=== PATIENT | male | born 1945 | race Caucasian/White ===

== ENCOUNTER 2017-04-09 23:01 | Observation (INO) ==
[2017-04-09] MEDS ORDERED: 0.9 % Sodium Chloride 1,000 ML IVC ONE (23:08)
--- NOTE | 2017-04-09 23:18 | Emergency Department Note ---
Disposition Clinical Impression: Generalized weakness, Unsteady gait, Thrombocytopenia Fall Qualifiers: Encounter type: initial encounter Qualified Code(s): W19.XXXA - Unspecified fall, initial encounter Head injury Qualifiers: Encounter type: initial encounter Qualified Code(s): S09.90XA - Unspecified injury of head, initial encounter Leukocytosis Qualifiers: Leukocytosis type: unspecified Qualified Code(s): D72.829 - Elevated white blood cell count, unspecified Disposition: Admitted As Inpatient Condition: Fair Forms: Work/School Release, ED Satisfaction Letter General Adult HPI - General Chief complaint: ED General Medical Stated complaint: frequent falls/unsteady gait Time Seen by Provider: 04/09/17 23:07 Source: EMS, other (nurse at assisted living facility) Mode of arrival: EMS Limitations: altered mental status (disoriented) Nursing Notes Reviewed: Yes Vital Signs Reviewed: Yes - History of Present Illness Pt Subjective Complaint: "I'm just very tired" Onset (ago): day(s) Location: face Radiation: non-radiation Pain Scale: 0 Quality: other ("no pain") Improves with: nothing Worsens with: other ("a little sore if touching it") Associated symptoms: Reports: weakness ("weak and tired"). Denies: cough, fever /chills, headaches, loss of appetite, malaise, nausea/vomiting, shortness of breath, syncope Treatments Prior to Arrival: none - Related Data Home Medications Medication Instructions Recorded Confirmed Albuterol Sulfate [Proair Hfa] 2 puff IH Q4H PRN 12/06/16 12/06/16 Benztropine Mesylate 0.5 mg PO BID 12/06/16 12/06/16 Budesonide/Formoterol 160/4.5 2 puff IH BIDR 12/06/16 12/06/16 [Symbicort 160/4.5] Citalopram Hydrobromide 20 mg PO DAILY 12/06/16 12/06/16 [Citalopram HBr] Divalproex Sodium [Depakote] 2 tab PO TID 12/06/16 12/06/16 Finasteride [Proscar] 5 mg PO DAILY 12/06/16 12/06/16 Haloperidol 10 mg PO BID 12/06/16 12/06/16 Loratadine [Allergy Relief] 10 mg PO DAILY 12/06/16 12/06/16 Metoprolol Succinate 25 mg PO DAILY 12/06/16 12/06/16 Montelukast [Singulair] 10 mg PO QPM 12/06/16 12/06/16 Oxybutynin Chloride [Ditropan Xl] 5 mg PO DAILY 12/06/16 12/06/16 Oxygen 1 each .ROUTE AD 12/06/16 12/06/16 Pravastatin Sodium [Pravachol] 80 mg PO DAILY 12/06/16 12/06/16 Prazosin HCl [Minipress] 1 mg PO HS 12/06/16 12/06/16 risperiDONE [Risperdal] 2 tab PO HS 12/06/16 12/06/16 risperiDONE [Risperidone] 1 mg PO QAM 12/06/16 12/06/16 Allergies Allergy/AdvReac Type Severity Reaction Status Date / Time No Known Allergies Allergy Verified 11/16/15 10:49 All systems ED: reviewed and negative except as stated. Review of Systems: As Per HPI Constitutional: Reports: weakness. Denies: fever, chills Eyes: Denies: eye pain, eye discharge, vision change ENT ED: Denies: ear pain, throat pain, dysphagia Cardiovascular: Denies: chest pain, palpitations, dyspnea on exertion Respiratory: Denies: cough, dyspnea, wheezes, stridor, sputum production Gastrointestinal: Denies: abdominal pain, nausea, vomiting, diarrhea Genitourinary: Denies: urgency, dysuria, frequency Musculoskeletal: Denies: back pain, neck pain, joint swelling Neurological: Denies: headache, numbness, paresthesias Endocrine: Reports: fatigue Hematological/Lymphatic: Denies: easy bleeding, easy bruising Past Medical History - Past Medical History Attestation: Yes The following information was validated with the patient. Source: patient Medical history: Reports: COPD, other (light chain disease) Psychiatric history: Reports: prior suicide attempt, schizophrenia - Social History Smoking Status: Current every day smoker Smokeless Tobacco Status: No Alcohol use: Reports: none Drug use: Reports: none Physical Exam - General Limitations: no limitations General appearance: alert, in no apparent distress - Head Head exam: normocephalic, normal inspection, other (contusion to right orbital area) - Expanded Head Exam Head exam physicial: Present: contusion. Absent: raccoon eyes, Hernandez's sign, CSF rhinorrhea, CSF otorrhea 1 - contusion - Eye Eye exam: Present: PERRL, periorbital swelling, periorbital tenderness. Absent : scleral icterus, conjunctival injection - ENT ENT exam: mucous membranes dry - Neck Neck exam: Present: normal inspection, full ROM, trachea midline. Absent: tenderness - Expanded Neck Exam Neck exam focused ED: Absent: midline tenderness, paraspinal tenderness, anterior neck swelling - Chest Chest inspection: Present: normal inspection - Respiratory Respiratory exam: Present: normal lung sounds bilaterally. Absent: respiratory distress, wheezes, stridor, accessory muscle use - Cardiovascular Cardiovascular exam: Present: regular rate, normal rhythm - Abdominal Exam Abdominal exam: Present: soft, Non-Tender. Absent: distention, guarding, rebound, rigidity, mass - Extremities Exam Extremities exam: Present: normal inspection, normal capillary refill. Absent: tenderness, joint swelling, calf tenderness - Expanded Lower Extremity Exam Neurovascular/Tendon exam: Present: normal capillary refill. Absent: pulse deficit Gait: not tested/not observed - Neurological Exam Neurological exam: Present: alert - Expanded Neurological Exam Patient oriented to: Present: person, place Speech: Present: fluid speech Cranial nerves: EOM function (II, III, IV, ): Normal, facial sensation (V): Normal, facial palsy (VII): Normal, gag reflex (IX): Normal, spinal accessory function (XI): Normal, tongue deviation (XII): Normal Cerebellar function: finger to nose: Normal Motor strength - LUE: 3/5 Motor strength - RUE: 3/5 Motor strength - LLE: 3/5 Motor strength - RLE: 3/5 Sensory exam upper extremity: light touch: Normal Sensory exam lower extremity: light touch: Normal Coma Scale Eye Opening: Spontaneous Coma Scale Motor Response: Obeys Commands Coma Scale Verbal Response: Confused Coma Scale Total: 14 - Psychiatric Psychiatric exam: Present: normal affect, normal mood - Skin Skin exam: Present: warm, dry, intact, normal color Course Course Narrative: Patient was sent in from the assisted living facility for evaluation after having a fall. EMS reports that the nurse informed them that the patient has been unsteady and has almost fallen several times over the past two days, then today they found him in the bathroom on the floor. He states that he was just very tired and he fell. He denies loss of consciousness. He denies any pain. He complains of feeling tired. EKG shows a normal sinus rhythm. Chest X-ray is also normal. CT of the head, C-spine, and orbits are read as no acute abnormality. Urinalysis is also normal. Patient is somewhat disoriented and complains of feeling generalized weakness and fatigue. He has a leukocytosis and renal insufficiency as well as new thrombocytopenia. He will require admission for further evaluation and management. Case has been discussed with Dr. Mckeon. He has seen the patient and agrees with the assessment and plan. Vital Signs Temperature 98.2 F 04/09/17 23:26 Pulse Rate 92 04/09/17 23:26 Respiratory Rate 18 04/09/17 23:26 Blood Pressure 117/86 04/09/17 23:26 O2 Sat by Pulse Oximetry 92 04/09/17 23:26 Temperature 98.2 F 04/09/17 23:26 Pulse Rate 92 04/09/17 23:26 Respiratory Rate 18 04/09/17 23:26 Blood Pressure 117/86 04/09/17 23:26 O2 Sat by Pulse Oximetry 94 04/09/17 23:30 Oxygen Delivery Oxygen Delivery Room Air Medical Decision Making - Medical Records Medical records reviewed: Yes I reviewed the patient's medical records. - Lab Data Lab results reviewed: Yes I reviewed the patient's lab results. Lab results narrative: Laboratory Last Values WBC 12.2 K/mcL (4.3-11.1) H 04/10/17 00:11 RBC 4.54 M/mcL (4.19-5.50) 04/10/17 00:11 Hgb 14.1 g/dL (12.9-16.9) 04/10/17 00:11 Hct 42.3 % (37.5-50.1) 04/10/17 00:11 MCV 93.2 fL (83.0-100.0) 04/10/17 00:11 MCH 31.1 pg (28.0-33.3) 04/10/17 00:11 MCHC 33.3 g/dL (31.6-35.5) 04/10/17 00:11 RDW 12.6 % (11.5-14.5) 04/10/17 00:11 Plt Count 127 K/mcL (140-400) L 04/10/17 00:11 MPV 10.2 fL (9.4-12.4) 04/10/17 00:11 Immature Gran % 0.5 % (0-4) 04/10/17 00:11 Seg Neutrophils % 75.4 % 04/10/17 00:11 Lymphocytes % 9.6 % 04/10/17 00:11 Monocytes % 13.8 % 04/10/17 00:11 Eosinophils % 0.5 % 04/10/17 00:11 Basophils % 0.2 % 04/10/17 00:11 Neutrophils # 9.2 K/mcL (1.6-8.9) H 04/10/17 00:11 Lymphocytes # 1.2 K/mcL (0.6-4.6) 04/10/17 00:11 Monocytes # 1.7 K/mcL (0.0-1.3) H 04/10/17 00:11 Eosinophils # 0.1 K/mcL (0.0-0.6) 04/10/17 00:11 Basophils # 0.0 K/mcL (0.0-0.2) 04/10/17 00:11 PT 12.7 Seconds (9.4-12.1) H 04/10/17 00:11 INR 1.2 04/10/17 00:11 Sodium 138 mEq/L (136-145) 04/10/17 00:11 Potassium 4.2 mEq/L (3.5-4.5) 04/10/17 00:11 Chloride 108 mEq/L (98-109) 04/10/17 00:11 Carbon Dioxide 21 mEq/L (19-29) 04/10/17 00:11 BUN 27 mg/dL (8-26) H 04/10/17 00:11 Creatinine 1.53 mg/dL (0.72-1.25) H 04/10/17 00:11 Est GFR ( Amer) 55 (> 60) L 04/10/17 00:11 Est GFR (Non-Af Amer) 45 (> 60) L 04/10/17 00:11 BUN/Creatinine Ratio 18 (6-26) 04/10/17 00:11 Glucose 122 mg/dL (70-99) H 04/10/17 00:11 Calculated Osmolality 292 (280-300) 04/10/17 00:11 Lactic Acid 0.9 mmol/L (0.5-2.2) 04/10/17 00:11 Calcium 9.8 mg/dL (8.6-10.8) 04/10/17 00:11 Magnesium 1.7 mg/dL (1.6-2.6) 04/10/17 00:11 Total Bilirubin 0.5 mg/dL (0.2-1.2) 04/10/17 00:11 AST 31 Units/L (5-34) 04/10/17 00:11 ALT 10 Units/L (0-55) 04/10/17 00:11 Alkaline Phosphatase 68 Units/L (38-126) 04/10/17 00:11 Troponin I 0.01 ng/mL (0-0.03) 04/10/17 00:11 Serum Total Protein 6.6 g/dL (6.0-8.3) 04/10/17 00:11 Albumin 2.7 g/dL (3.5-5.0) L 04/10/17 00:11 Globulin 3.9 g/dL (2.4-3.5) H 04/10/17 00:11 Albumin/Globulin Ratio 0.7 (1.1-2.2) L 04/10/17 00:11 Urine Color Yellow (Yellow) 04/10/17 01:00 Urine Clarity Clear (Clear) 04/10/17 01:00 Urine pH 6.5 pH Units (5.0-8.0) 04/10/17 01:00 Ur Specific [place] 1.008 (1.010-1.025) L 04/10/17 01:00 Urine Protein Negative mg/dL (Neg-Trace) 04/10/17 01:00 Urine Glucose (UA) Normal mg/dL (Normal) 04/10/17 01:00 Urine Ketones Negative mg/dL (Negative) 04/10/17 01:00 Urine Blood Small (Negative) H 04/10/17 01:00 Urine Nitrite Negative (Negative) 04/10/17 01:00 Urine Bilirubin Negative (Negative) 04/10/17 01:00 Urine Urobilinogen Normal mg/dL (Normal) 04/10/17 01:00 Ur Leukocyte Esterase Negative (Negative) 04/10/17 01:00 Urine Microscopic RBC 0-3 per hpf (0-3) 04/10/17 01:00 Urine Microscopic WBC 0-3 per hpf (0-3) 04/10/17 01:00 Ur Squamous Epith Cells None Seen per lpf (None-Few) 04/10/17 01:00 Urine Bacteria None Seen per hpf (None-Few) 04/10/17 01:00 Hyaline Casts None Seen per lpf (None-Few) 04/10/17 01:00 Ur Culture Indicated? NO (NO) 04/10/17 01:00 Valproic Acid 76.02 mcg/mL (50-100) 04/10/17 00:11 Result diagrams: 04/10/17 00:11 04/10/17 00:11 Lab Results 04/10/17 04/10/17 04/10/17 Range/Units 00:11 00:11 00:11 WBC 12.2 H (4.3-11.1) K/mcL RBC 4.54 (4.19-5.50) M/mcL Hgb 14.1 (12.9-16.9) g/dL Hct 42.3 (37.5-50.1) % MCV 93.2 (83.0-100.0) fL MCH 31.1 (28.0-33.3) pg MCHC 33.3 (31.6-35.5) g/dL RDW 12.6 (11.5-14.5) % Plt Count 127 L (140-400) K/mcL MPV 10.2 (9.4-12.4) fL Immature Gran % 0.5 (0-4) % Seg Neutrophils % 75.4 % Lymphocytes % 9.6 % Monocytes % 13.8 % Eosinophils % 0.5 % Basophils % 0.2 % Neutrophils # 9.2 H (1.6-8.9) K/mcL Lymphocytes # 1.2 (0.6-4.6) K/mcL Monocytes # 1.7 H (0.0-1.3) K/mcL Eosinophils # 0.1 (0.0-0.6) K/mcL Basophils # 0.0 (0.0-0.2) K/mcL PT 12.7 H (9.4-12.1) Seconds INR 1.2 Sodium 138 (136-145) mEq/L Potassium 4.2 (3.5-4.5) mEq/L Chloride 108 (98-109) mEq/L Carbon Dioxide 21 (19-29) mEq/L BUN 27 H (8-26) mg/dL Creatinine 1.53 H (0.72-1.25) mg/dL Est GFR ( Amer) 55 L (> 60) Est GFR (Non-Af Amer) 45 L (> 60) BUN/Creatinine Ratio 18 (6-26) Glucose 122 H (70-99) mg/dL Calculated Osmolality 292 (280-300) Lactic Acid (0.5-2.2) mmol/L Calcium 9.8 (8.6-10.8) mg/dL Magnesium 1.7 (1.6-2.6) mg/dL Total Bilirubin 0.5 (0.2-1.2) mg/dL AST 31 (5-34) Units/L ALT 10 (0-55) Units/L Alkaline Phosphatase 68 (38-126) Units/L Troponin I (0-0.03) ng/mL Serum Total Protein 6.6 (6.0-8.3) g/dL Albumin 2.7 L (3.5-5.0) g/dL Globulin 3.9 H (2.4-3.5) g/dL Albumin/Globulin Ratio 0.7 L (1.1-2.2) Valproic Acid (50-100) mcg/mL 04/10/17 04/10/17 04/10/17 Range/Units 00:11 00:11 00:11 WBC (4.3-11.1) K/mcL RBC (4.19-5.50) M/mcL Hgb (12.9-16.9) g/dL Hct (37.5-50.1) % MCV (83.0-100.0) fL MCH (28.0-33.3) pg MCHC (31.6-35.5) g/dL RDW (11.5-14.5) % Plt Count (140-400) K/mcL MPV (9.4-12.4) fL Immature Gran % (0-4) % Seg Neutrophils % % Lymphocytes % % Monocytes % % Eosinophils % % Basophils % % Neutrophils # (1.6-8.9) K/mcL Lymphocytes # (0.6-4.6) K/mcL Monocytes # (0.0-1.3) K/mcL Eosinophils # (0.0-0.6) K/mcL Basophils # (0.0-0.2) K/mcL PT (9.4-12.1) Seconds INR Sodium (136-145) mEq/L Potassium (3.5-4.5) mEq/L Chloride (98-109) mEq/L Carbon Dioxide (19-29) mEq/L BUN (8-26) mg/dL Creatinine (0.72-1.25) mg/dL Est GFR ( Amer) (> 60) Est GFR (Non-Af Amer) (> 60) BUN/Creatinine Ratio (6-26) Glucose (70-99) mg/dL Calculated Osmolality (280-300) Lactic Acid 0.9 (0.5-2.2) mmol/L Calcium (8.6-10.8) mg/dL Magnesium (1.6-2.6) mg/dL Total Bilirubin (0.2-1.2) mg/dL AST (5-34) Units/L ALT (0-55) Units/L Alkaline Phosphatase (38-126) Units/L Troponin I 0.01 (0-0.03) ng/mL Serum Total Protein (6.0-8.3) g/dL Albumin (3.5-5.0) g/dL Globulin (2.4-3.5) g/dL Albumin/Globulin Ratio (1.1-2.2) Valproic Acid 76.02 (50-100) mcg/mL - Radiology Data Radiology results reviewed: Yes I reviewed the patient's radiology results. Cervical Spine CT 04/09/17 23:08 IMPRESSION: 1. No acute abnormality of the cervical spine. 2. Ojuv-rl-rublhjib multilevel degenerative changes. D/ / Gómez Mcgowan MD / Gómez Mcgowan MD Interpreting Provider: Gómez Mcgowan MD Chest X-Ray 04/09/17 23:08 IMPRESSION: Bibasilar atelectasis/ scarring. Right mid lung zone nodule is seen on recent chest CT. D/ / Adalid Adan MD / Adalid Adan MD Interpreting Provider: Adalid Adan MD Orbit CT 04/09/17 23:08 IMPRESSION: CT HEAD: No acute intracranial process. Stable moderate to severe global parenchymal brain volume loss and mild chronic small vessel ischemic disease. CT ORBITS: Negative. D/ / Adalid Adan MD / Adalid Adan MD Interpreting Provider: Adalid Adan MD Head CT 04/09/17 23:09 IMPRESSION: CT HEAD: No acute intracranial process. Stable moderate to severe global parenchymal brain volume loss and mild chronic small vessel ischemic disease. CT ORBITS: Negative. D/ / Adalid Adan MD / Adalid Adan MD Interpreting Provider: Adalid Adan MD - EKG Data EKG #1 EKG attestation: Yes I reviewed and interpreted this EKG. EKG shows normal: sinus rhythm Rate: normal Rhythm: NSR [place]/QRS: normal When compared to previous EKG there are: no significant changes Interpretation: no acute changes, normal EKG
--- NOTE | 2017-04-10 00:08 | Emergency Department Note ---
START Narrative - START START: For this encounter, I have reviewed the SUBSYSTEMS ENGINEER or PA documentation, treatment plan, and medical decision making; and I have had face to face time with this patient. Briefly, this is a 71-year-old male presents emergency room for generalized weakness and frequent falls. Patient stays at a assisted living. States he fell this evening was unable to get up off the floor. He states he has not felt well for the past couple days and feels more weak. He does use a walker normally. He was using a walker today. Denies any new medications. He thinks he may have had a fever earlier in the day. He denies any chest pain or shortness of breath this time.
[2017-04-10 00:19] LABS: Basophils % 0.2 %; Eosinophils # 0.1 K/mcL (0.0-0.6); Eosinophils % 0.5 %; Hematocrit 42.3 % (37.5-50.1); Hemoglobin 14.1 g/dL (12.9-16.9); Immature Granulocytes % 0.5 % (0-4); Lymphocytes # 1.2 K/mcL (0.6-4.6); Lymphocytes % 9.6 %; Mean Corpuscular HGB Conc 33.3 g/dL (31.6-35.5); Mean Corpuscular Hemoglobin 31.1 pg (28.0-33.3); Mean Corpuscular Volume 93.2 fL (83.0-100.0); Mean Platelet Volume 10.2 fL (9.4-12.4); Monocytes # 1.7 K/mcL (0.0-1.3); Monocytes % 13.8 %; Neutrophils # 9.2 K/mcL (1.6-8.9); Platelet Count 127 K/mcL (140-400); Red Blood Count 4.54 M/mcL (4.19-5.50); Red Cell Distribution Width 12.6 % (11.5-14.5); Segmented Neutrophils % 75.4 %
[2017-04-10 00:24] LABS: INR 1.2; Prothrombin Time 12.7 Seconds (9.4-12.1)
[2017-04-10 00:36] LABS: Albumin 2.7 g/dL (3.5-5.0); Albumin/Globulin Ratio 0.7 (1.1-2.2); Bilirubin,Total 0.5 mg/dL (0.2-1.2); Calcium 9.8 mg/dL (8.6-10.8); Globulin 3.9 g/dL (2.4-3.5); Magnesium 1.7 mg/dL (1.6-2.6); Potassium 4.2 mEq/L (3.5-4.5); Total Protein 6.6 g/dL (6.0-8.3)
[2017-04-10 01:09] LABS: Bilirubin,Urine Negative (Negative); Blood,Urine Small (Negative); Clarity,Urine Clear (Clear); Color,Urine Yellow (Yellow); Glucose,Urine (UA) Normal (Normal); Ketones,Urine Negative (Negative); Leukocyte Esterase,Urine Negative (Negative); Nitrite,Urine Negative (Negative); PH,Urine 6.5 pH Units (5.0-8.0); Protein,Urine Negative (Neg-Trace); Specific Gravity,Urine 1.008 (1.010-1.025); Urobilinogen,Urine Normal (Normal)
[2017-04-10 01:11] LABS: Bacteria,Urine None Seen per hpf (None-Few); Hyaline Casts,Urine None Seen per lpf (None-Few); RBC,Urine 0-3 per hpf (0-3); Squamous Epithelial Cell,Urine None Seen per lpf (None-Few); WBC,Urine 0-3 per hpf (0-3)
--- NOTE | 2017-04-10 03:02 | Internal Med History&Physical ---
Date of Encounter: 04/10/17 Time of Encounter: 02:54 Assessment and Plan (1) Generalized weakness Current visit: Yes Status: Acute CXR, UA all wnl. Check TSH, FT4, Further eval pending (2) Unsteady gait Current visit: Yes Status: Acute PT eval, possible SNF, orthostats (3) Fall Current visit: Yes Status: Acute PT eval possible SNF placement, orthostats Qualifiers: Encounter type: initial encounter Qualified Code(s): W19.XXXA - Unspecified fall, initial encounter (4) HTN (hypertension), benign Current visit: Yes Status: Acute hold beta malou given BP low normal (5) Lung nodule, solitary Current visit: Yes Status: Acute incidental lung nodule on imaging. outpatient eval Internal Medicine - H&P: HPI Chief complaint: Fall, weakness History of present illness: Mr. Castaneda is a 71 year old male hx of schizoprenia, HTN who presents with acute onset generalized weakness and fall. 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 He had fallen and struck the right part of his face. No improving factors. He reports feeling tired and deconditioned. CT head, C-spine in ED wnl. CXR with lung nodule w/o infiltrate, UA w/o UTI. Past Med Surg Social Fam HX - Past Medical History Medical history: COPD, other (light chain disease) Psychiatric history: prior suicide attempt, schizophrenia - Past Surgical History Surgical History: no surgical history - Social History Smoking Status: Current every day smoker Smokeless Tobacco Status: No Alcohol use: none Drug use: none - Additional Family History Additional family history: Hypertension Internal Medicine - H&P: Meds Albuterol Sulfate [Proair Hfa] 2 puff IH Q4H PRN 12/06/16 [History] Benztropine Mesylate 0.5 mg PO BID 12/06/16 [History] Budesonide/Formoterol 160/4.5 [Symbicort 160/4.5] 2 puff IH BIDR 12/06/16 [ History] Citalopram Hydrobromide [Citalopram HBr] 20 mg PO DAILY 12/06/16 [History] Divalproex Sodium [Depakote] 2 tab PO TID 12/06/16 [History] Finasteride [Proscar] 5 mg PO DAILY 12/06/16 [History] Haloperidol 10 mg PO BID 12/06/16 [History] Loratadine [Allergy Relief] 10 mg PO DAILY 12/06/16 [History] Metoprolol Succinate 25 mg PO DAILY 12/06/16 [History] Montelukast [Singulair] 10 mg PO QPM 12/06/16 [History] Oxybutynin Chloride [Ditropan Xl] 5 mg PO DAILY 12/06/16 [History] Oxygen 1 each .ROUTE AD 12/06/16 [History] Pravastatin Sodium [Pravachol] 80 mg PO DAILY 12/06/16 [History] Prazosin HCl [Minipress] 1 mg PO HS 12/06/16 [History] risperiDONE [Risperdal] 2 tab PO HS 12/06/16 [History] risperiDONE [Risperidone] 1 mg PO QAM 12/06/16 [History] Allergies No Known Allergies Allergy (Verified 11/16/15 10:49) All Systems PM: A 10-system review of systems was performed and is negative for pertinent findings except as documented above in the HPI. Review of systems: ROS 14 point review of systems reviewed as best as possible given presentation. Pertinent positive or negative as per HPI or otherwise reviewed as negative - Constitutional Vitals: Temp Pulse Resp BP Pulse Ox 98.2 F 70 18 118/72 98 04/09/17 23:26 04/10/17 02:30 04/10/17 02:30 04/10/17 02:30 04/10/17 02:30 Exam: General - comfortable in no distress Eyes - CELI. Eye lids intact. No scleral icterus ENT - Oral mucosa pink, dentition intact. External ear clear/dry/intact. No thyromegaly Lymphatics - No cervical/inguinal lympadenopathy Neuro - Moving all extremities, No focal weakness, generalized weakness noted. No gross peripheral or central neuro deficits with intact CN 2-12 exam Heart - Sinus. RRR. S1 and S2 present. No added HS/murmurs appreciated. No elevated JVD appreciated. No calf swellings/erythema Lung - Decrease air entry along bases due to lack of effort, No crackes/wheezes appreciated GI - Soft, non-tender. No hepatosplenomegaly/ascities. BS+ - No CVA/suprapubic tenderness or palpable bladder distension Skin - Intact. No rash/petechiae/ecchymosis. Warm extremities Internal Med - H&P Results - Labs CBC & Chem 7: 04/10/17 00:11 04/10/17 00:11
[2017-04-10] MEDS ORDERED: Naloxone 0.4 MG/ML INJ IVP PRN (03:14)
[2017-04-10 04:56] LABS: Hematocrit 43.9 % (37.5-50.1); Hemoglobin 14.7 g/dL (12.9-16.9); Mean Corpuscular HGB Conc 33.5 g/dL (31.6-35.5); Mean Corpuscular Hemoglobin 31.8 pg (28.0-33.3); Mean Platelet Volume 10.2 fL (9.4-12.4); Platelet Count 129 K/mcL (140-400); Red Blood Count 4.62 M/mcL (4.19-5.50); Red Cell Distribution Width 12.8 % (11.5-14.5)
[2017-04-10 05:06] LABS: Calcium 10.1 mg/dL (8.6-10.8); Magnesium 1.7 mg/dL (1.6-2.6); Potassium 4.1 mEq/L (3.5-4.5)
[2017-04-10 05:30] LABS: Thyroid Stimulating Hormone 2.735 mcIU/mL (0.350-4.840)
[2017-04-10] MEDS: *HR* Enoxaparin 30 MG/0.3 ML SYRINGE SQ SCH (05:53)
[2017-04-10] MEDS: 0.9 % Sodium Chloride 1,000 ML IVC SCH (05:53)
[2017-04-10] MEDS: Finasteride 5 MG TABLET PO SCH (08:29)
[2017-04-10] MEDS: Divalproex (12 HR) 250 MG TABLET PO SCH ×3 (08:29→21:23)
[2017-04-10] MEDS: risperiDONE 1 MG TABLET PO SCH (08:30)
[2017-04-10] MEDS ORDERED: Acetaminophen 325 MG TABLET PO PRN ×2 (08:48→10:52)
--- NOTE | 2017-04-10 10:48 | Event Note ---
Date of Encounter: 04/10/17 Time of Encounter: 09:15 Patient seen and examined. On examination, patient sitting upright in his chair. Patient is alert and oriented 3 but difficult to understand. He has some expressive aphasia but when given enough time, he is able to answer simple questions. Patient stating at this time that he feels as if it is "hard to walk." He is endorsing right leg pain and overall weakness. He states that he lives at [facility] and uses a walker. On examination, his right ankle is swollen of unknown etiology. Will obtain plain films. Patient is unable to tell me where at on his right leg that he is hurting. He did not have pain with passive movement of his knee or his hip but will check plain films. Cervical spine CT negative. Chest x-ray negative. Orbital CT negative. Head CT negative. Urinalysis negative. Awaiting physical therapy recommendations. Patient stating he would be amenable to ECF placement if it were recommended. Renal functioning stable. ITS Impressions Cervical Spine CT 04/09/17 23:08 IMPRESSION: 1. No acute abnormality of the cervical spine. 2. Kyti-cx-ognjiopa multilevel degenerative changes. D/ / Gómez Mcgowan MD / Gómez Mcgowan MD Interpreting Provider: Gómez Mcgowan MD Chest X-Ray 04/09/17 23:08 IMPRESSION: Bibasilar atelectasis/ scarring. Right mid lung zone nodule is seen on recent chest CT. D/ / Adalid Adan MD / Adalid Adan MD Interpreting Provider: Adalid Adan MD Orbit CT 04/09/17 23:08 IMPRESSION: CT HEAD: No acute intracranial process. Stable moderate to severe global parenchymal brain volume loss and mild chronic small vessel ischemic disease. CT ORBITS: Negative. D/ / Adalid Adan MD / Adalid Adan MD Interpreting Provider: Adalid Adan MD Head CT 04/09/17 23:09
[2017-04-10] MEDS ORDERED: MAGNESIUM HYDROXIDE 400 MG PO PRN (10:50)
[2017-04-10] MEDS ORDERED: MOM Conc 10 ML UD.LIQ PO PRN (10:50)
[2017-04-10] MEDS ORDERED: *HR* Morphine 2 MG/ML SYRINGE IVP PRN (10:52)
[2017-04-10] MEDS: Budesonide/Formoterol 160/4.5 MDI IH SCH ×2 (11:00→20:20)
[2017-04-10] MEDS ORDERED: NON-FORMULARY MEDICATION 1 EACH EACH (Oxygen [Oxygen] 1 EACH) SCH (11:00)
[2017-04-10] MEDS: Metoprolol XL (24 HR) Succ 25 MG TAB.ER.24H PO SCH (12:57)
[2017-04-10] MEDS: Loratadine 10 MG TABLET PO SCH (12:57)
[2017-04-10] MEDS ORDERED: *HR* Propofol 200 MG/20 ML VIAL IVP ONE (17:14)
[2017-04-10] MEDS ORDERED: *HR* FentaNYL (PF) 100 MCG/2 ML VIAL ONE (17:15)
--- NOTE | 2017-04-10 17:56 | Electrocardiograph Report ---
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
[2017-04-10] MEDS: RisperiDAL 3 MG TABLET PO SCH (21:23)
[2017-04-11] MEDS: 0.9 % Sodium Chloride 1,000 ML IVC SCH ×4 (01:24→22:44)
[2017-04-11 03:24] LABS: Basophils % 0.4 %; Eosinophils # 0.3 K/mcL (0.0-0.6); Eosinophils % 2.5 %; Hematocrit 42.4 % (37.5-50.1); Hemoglobin 13.9 g/dL (12.9-16.9); Immature Granulocytes % 0.3 % (0-4); Lymphocytes # 1.5 K/mcL (0.6-4.6); Lymphocytes % 14.1 %; Mean Corpuscular HGB Conc 32.8 g/dL (31.6-35.5); Mean Corpuscular Hemoglobin 31.1 pg (28.0-33.3); Mean Corpuscular Volume 94.9 fL (83.0-100.0); Mean Platelet Volume 10.8 fL (9.4-12.4); Monocytes # 1.4 K/mcL (0.0-1.3); Monocytes % 13.8 %; Neutrophils # 7.1 K/mcL (1.6-8.9); Platelet Count 136 K/mcL (140-400); Red Blood Count 4.47 M/mcL (4.19-5.50); Red Cell Distribution Width 12.7 % (11.5-14.5); Segmented Neutrophils % 68.9 %
[2017-04-11 03:41] LABS: BUN/Creatinine Ratio 21 (6-26); Blood Urea Nitrogen 24 mg/dL (8-26); Calcium 9.7 mg/dL (8.6-10.8); Carbon Dioxide 20 mEq/L (19-29); Chloride 114 mEq/L (98-109); Glucose 111 mg/dL (70-99); Osmolality,Calculated 301 (280-300); Potassium 4.4 mEq/L (3.5-4.5); Sodium 143 mEq/L (136-145); eGFR For African Americans > 60 (> 60); eGFR For Non-African Americans > 60 (> 60)
[2017-04-11] MEDS: *HR* Enoxaparin 30 MG/0.3 ML SYRINGE SQ SCH (06:14)
[2017-04-11] MEDS: Budesonide/Formoterol 160/4.5 MDI IH SCH ×2 (08:19→19:51)
[2017-04-11] MEDS: risperiDONE 1 MG TABLET PO SCH (09:28)
[2017-04-11] MEDS: Divalproex (12 HR) 250 MG TABLET PO SCH ×3 (09:28→22:43)
[2017-04-11] MEDS: Metoprolol XL (24 HR) Succ 25 MG TAB.ER.24H PO SCH (09:29)
[2017-04-11] MEDS: Finasteride 5 MG TABLET PO SCH (09:29)
[2017-04-11] MEDS: Loratadine 10 MG TABLET PO SCH (09:30)
[2017-04-11] MEDS: *HR* HYDROcodone/Acet 5/325 mg TABLET PO PRN (09:32)
--- NOTE | 2017-04-11 18:11 | Internal Med Progress Note ---
Date of Encounter: 04/11/17 Time of Encounter: 10:45 - Assessment and plan (1) Generalized weakness Current Visit: Yes Status: Acute Assessment and plan: Pt states that he has felt weak for about the last 3-4 days at home. Pt has fallen and feels tired and deconditioned. CT head, C-spine, and UA negative. Chest xray shows a solitary nodule and no infiltrate. He has mild leukocytosis on arrival, however, has resolved, WBC to day 10.3. Chem7 is WNL and Valproic Acid level is WNL. Pt has been evaluated by PT with the recommendation that he go to rehabilitation after discharge. Social work is in involved and referrals are pending. Continue PT OT in the hospital Monitor labs and vital signs Fall precautions and bed alarm (2) Unsteady gait Current Visit: Yes Status: Acute Assessment and plan: Plan as above. Patient with recent falls. (3) Thrombocytopenia Current Visit: Yes Status: Acute Assessment and plan: Acute. Platelet count is increasing daily. We will continue to monitor. (4) Leukocytosis Current Visit: Yes Status: Resolved Qualifiers: Leukocytosis type: unspecified Qualified Code(s): D72.829 - Elevated white blood cell count, unspecified (5) HTN (hypertension), benign Current Visit: Yes Status: Acute Assessment and plan: Chronic. Well controlled in inpatient setting. Continue home medications. (6) Lung nodule, solitary Current Visit: Yes Status: Acute Assessment and plan: Incidental finding. Follow-up outpatient. - Time Spent With Patient less than 15 minutes - Subjective Interval history: Pt was seen and assessed at about 1045 a.m. Pt is alert and oriented x 3, his speech is slurred, however, he states this is normal. On physical exam, pt is noted to have RLE edema that pt states started about a week ago and has caused him pain and difficulty with ambulation. He states that pain increases with weight bearing and when I asked him to wiggle his toes and press plantar surfaces against my hand. - Constitutional Vitals: Temp Pulse Resp BP Pulse Ox 97.9 F 69 14 134/83 95 04/11/17 15:56 04/11/17 15:56 04/11/17 15:56 04/11/17 15:56 04/11/17 15:56 General appearance: Present: cooperative, A&O X 3, pleasant, no acute distress, answers questions appropriately - Head Head exam: Present: normal inspection - Eye Eye exam: Present: normal appearance, conjuntiva pink - ENT ENT exam: Present: mucous membranes moist, normal external ear exam - Neck Neck exam general surgery: Absent: lymphadenopathy, tenderness - Respiratory Respiratory exam: Present: CTAB. Absent: chest wall tenderness, rales, respiratory distress, rhonchi, stridor, wheezes - Cardiovascular Cardiovascular exam: Present: RRR, +S1, +S2. Absent: diastolic murmur, systolic murmur - GI/Abdominal GI/Abdominal exam: Present: distended, normal bowel sounds, soft. Absent: hepatomegaly, tenderness - Extremities Exam Extremities exam: Present: pedal edema, tenderness. Absent: normal capillary refill, warm, radial pulses palpable and symetrical - Neurological Exam Neurological exam: Present: alert, oriented X3, speech deficit. Absent: facial droop Internal Medicine: Result - Labs CBC & Chem 7: 04/11/17 03:01 04/11/17 03:01 Labs: Short CBC 04/11/17 Range/Units 03:01 WBC 10.3 (4.3-11.1) K/mcL Hgb 13.9 (12.9-16.9) g/dL Hct 42.4 (37.5-50.1) % Plt Count 136 L (140-400) K/mcL Neutrophils # 7.1 (1.6-8.9) K/mcL BMP 04/11/17 03:01 Sodium 143 Potassium 4.4 Chloride 114 H Carbon Dioxide 20 BUN 24 Creatinine 1.17 Glucose 111 H Calcium 9.7 - ABG Interpretation ABG results: PT/INR, D-dimer PT 12.7 Seconds (9.4-12.1) H 04/10/17 00:11 - Impressions Impressions Ankle X-Ray 04/10/17 10:48 IMPRESSION: Mild diffuse soft tissue swelling at the right ankle, without acute osseous abnormality. D/ / 04/10/2017 16:01:56 Orville Vidal MD / marce Interpreting Provider: Orville Vidal MD Consult Discharge Plan - Plan Referrals: NONE,PCP [Primary Care Provider] -
--- NOTE | 2017-04-11 21:10 | Venous Imaging Report ---
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 Lower extremity abnormal superficial exam: left lesser saphenous vein demonstrates acute thrombosis. Left lower extremity: normal contralateral exam. Recommendations: Test completed on 04/11/2017 at 8:25:00 pm. Critical findings reported to Pt Kurtis DODD in person at 8:30:00 pm on 04/11/2017 by Day Manrique RDCS. Findings Venous Duplex Results: Right: Venous imaging of the lower extremity reveals full patency and normal vessel compressibility of the right distal iliac, right posterior tibial, right peroneal and right great saphenous. Doppler signals in the evaluated veins were normal. There is an acute partially occlusive thrombus seen in the right common femoral. It demonstrates a partially compressible vein. Flow was phasic and it did augment. There is an occlusive thrombus seen in the right superficial femoral. It demonstrates an incompressible vein. Flow was continuous and it did not augment. There is an acute occlusive thrombus seen in the right popliteal. It demonstrates an incompressible vein. Flow was continuous and it did not augment. The right anterior tibial demonstrates an incompressible vein. Flow was continuous and it did not augment. The right gastrocnemius demonstrates an incompressible vein. Flow was continuous and it did not augment. The right lesser saphenous demonstrates an incompressible vein. Flow was continuous and it did not augment. Left: Venous imaging of the lower extremity reveals full patency and normal vessel compressibility of the left common femoral. Doppler signals in the evaluated veins were normal. Prior Study: No prior study available for comparison. Lower Extremity Venous Duplex Side Vein Compress Spontaneous Flow Augment Diameter (cm) Depth (cm) Right Distal Iliac Normal Yes Phasic Yes Right Common Femoral Partial no Phasic yes Right Superficial Femoral None no Continuous no Right Popliteal None no Continuous no Right Posterior Tibial Normal Yes Phasic Yes Right Anterior Tibial None no Continuous no Right Peroneal Normal Yes Phasic Yes Right Gastrocnemius None no Continuous no Right Great Saphenous Normal Yes Phasic Yes Right Lesser Saphenous None no Continuous no Left Common Femoral Normal Yes Phasic yes Updated by Shree Mensah MD, FACS on 04/11/2017 9:02:43 PM Shree Mensah MD electronically signed on 04/11/2017 9:03:12 PM with status of Final
[2017-04-11] MEDS ORDERED: *HR* Heparin 5,000 UNIT/ML VIAL IVP ONE (21:18)
[2017-04-11] MEDS ORDERED: *HR* Heparin 5,000 UNIT/ML VIAL IVP PRN (21:18)
[2017-04-11 22:21] LABS: Hematocrit 39.1 % (37.5-50.1); Hemoglobin 12.9 g/dL (12.9-16.9); Mean Corpuscular Hemoglobin 31.2 pg (28.0-33.3); Mean Corpuscular Volume 94.7 fL (83.0-100.0); Platelet Count 156 K/mcL (140-400); Red Blood Count 4.13 M/mcL (4.19-5.50); Red Cell Distribution Width 12.9 % (11.5-14.5)
[2017-04-11 22:27] LABS: INR 1.1; Prothrombin Time 12.4 Seconds (9.4-12.1)
[2017-04-11 22:29] LABS: Activated Partial Thrombo Time 28.8 Seconds (26.0-36.0)
[2017-04-11] MEDS: RisperiDAL 3 MG TABLET PO SCH (22:43)
[2017-04-11] MEDS: Heparin 25,000 UNIT/500 ML D5W 25,000 UNIT/500 ML MLS IVC SCH (22:44)
[2017-04-12] MEDS ORDERED: *HR* Enoxaparin 40 MG/0.4 ML SYRINGE SQ SCH (06:00)
[2017-04-12 06:13] LABS: Basophils % 0.4 %; Eosinophils # 0.3 K/mcL (0.0-0.6); Eosinophils % 2.8 %; Hemoglobin 12.3 g/dL (12.9-16.9); Immature Granulocytes % 0.4 % (0-4); Lymphocytes # 1.7 K/mcL (0.6-4.6); Lymphocytes % 17.1 %; Mean Corpuscular HGB Conc 32.4 g/dL (31.6-35.5); Mean Corpuscular Hemoglobin 30.8 pg (28.0-33.3); Mean Platelet Volume 10.5 fL (9.4-12.4); Monocytes # 1.1 K/mcL (0.0-1.3); Monocytes % 11.8 %; Neutrophils # 6.5 K/mcL (1.6-8.9); Platelet Count 163 K/mcL (140-400); Red Cell Distribution Width 12.8 % (11.5-14.5); Segmented Neutrophils % 67.5 %
[2017-04-12] MEDS: *HR* Heparin 5,000 UNIT/ML VIAL IVP PRN ×3 (06:31→21:12)
[2017-04-12 06:32] LABS: BUN/Creatinine Ratio 17 (6-26); Blood Urea Nitrogen 19 mg/dL (8-26); Calcium 9.4 mg/dL (8.6-10.8); Carbon Dioxide 23 mEq/L (19-29); Chloride 118 mEq/L (98-109); Glucose 100 mg/dL (70-99); Osmolality,Calculated 306 (280-300); Potassium 4.2 mEq/L (3.5-4.5); Sodium 147 mEq/L (136-145); eGFR For African Americans > 60 (> 60); eGFR For Non-African Americans > 60 (> 60)
[2017-04-12] MEDS: 0.9 % Sodium Chloride 1,000 ML IVC SCH (07:14)
[2017-04-12] MEDS: Divalproex (12 HR) 250 MG TABLET PO SCH ×3 (08:03→20:54)
[2017-04-12] MEDS: Metoprolol XL (24 HR) Succ 25 MG TAB.ER.24H PO SCH (08:03)
[2017-04-12] MEDS: Loratadine 10 MG TABLET PO SCH (08:03)
[2017-04-12] MEDS: *HR* HYDROcodone/Acet 5/325 mg TABLET PO PRN (08:03)
[2017-04-12] MEDS: risperiDONE 1 MG TABLET PO SCH (08:03)
[2017-04-12] MEDS: Finasteride 5 MG TABLET PO SCH (08:04)
[2017-04-12] MEDS: Budesonide/Formoterol 160/4.5 MDI IH SCH ×2 (10:25→19:58)
[2017-04-12] MEDS: Heparin 25,000 UNIT/500 ML D5W 25,000 UNIT/500 ML MLS IVC SCH (17:35)
--- NOTE | 2017-04-12 18:32 | Internal Med Progress Note ---
Date of Encounter: 04/12/17 Time of Encounter: 10:20 - Assessment and plan (1) Generalized weakness Current Visit: Yes Status: Acute Assessment and plan: Patient states he feels significantly better today than he did yesterday. He was seen again by PT today. He was able to slowly move to the edge of the bed and come to sitting position. He was unable to use his walker to move to the chair due to weakness initially, but with the assistance of 2 staff, he was able to make it to the chair. (2) Unsteady gait Current Visit: Yes Status: Acute Assessment and plan: Plan as above. Patient with recent falls. (3) Thrombocytopenia Current Visit: Yes Status: Resolved Assessment and plan: Platelet count has returned to normal. 163. (4) Leukocytosis Current Visit: Yes Status: Resolved Assessment and plan: White count is 9.6 today. Qualifiers: Leukocytosis type: unspecified Qualified Code(s): D72.829 - Elevated white blood cell count, unspecified (5) HTN (hypertension), benign Current Visit: Yes Status: Acute Assessment and plan: Chronic. Well controlled in inpatient setting. Continue home medications. (6) Lung nodule, solitary Current Visit: Yes Status: Acute Assessment and plan: Incidental finding. Follow-up outpatient. (7) Dvt femoral (deep venous thrombosis) Current Visit: Yes Status: Acute Assessment and plan: Patient reports that he had had right lower extremity swelling, onset 1 week ago , and has constant pain and difficulty with ambulation. Pain increased with weightbearing and with pressing plantar surface against my hand during exam yesterday. Lower extremity abnormal deep exam: right common femoral through tibial vein demonstrates acute thrombosis. Lower extremity abnormal superficial exam: left lesser saphenous vein demonstrates acute thrombosis. Left lower extremity: normal contralateral exam. Nonweightbearing and elevation. Continue heparin drip Lab for PTT Qualifiers: Chronicity: acute Laterality: right Qualified Code(s): I82.411 - Acute embolism and thrombosis of right femoral vein - Time Spent With Patient less than 15 minutes - Subjective Interval history: Pt was seen and assessed about 10:20 AM. Patient was sitting up in his chair at bedside watching TV, he was alert, engaging, talkative. Speech is normal for him. He is aware that he is waiting on pen[facility] placement. He states that he feels better than he did yesterday. - Constitutional Vitals: Temp Pulse Resp BP Pulse Ox 97.3 F L 60 17 129/77 97 04/12/17 15:26 04/12/17 15:26 04/12/17 15:26 04/12/17 15:26 04/12/17 15:26 General appearance: Present: cooperative, A&O X 3, pleasant, no acute distress, answers questions appropriately - Head Head exam: Present: normal inspection - Eye Eye exam: Present: normal appearance, conjuntiva pink - ENT ENT exam: Present: mucous membranes moist, normal exam - Neck Neck exam general surgery: Present: normal inspection. Absent: lymphadenopathy , tenderness - Respiratory Respiratory exam: Present: decreased breath sounds, CTAB. Absent: rales, respiratory distress, rhonchi, stridor, wheezes - Cardiovascular Cardiovascular exam: Present: RRR, +S1, +S2. Absent: clicks, diastolic murmur, gallop, systolic murmur - GI/Abdominal GI/Abdominal exam: Present: normal bowel sounds, soft. Absent: hepatomegaly, tenderness - Extremities Exam Extremities exam: Present: warm, radial pulses palpable and symetrical. Absent : pedal edema, tenderness - Neurological Exam Neurological exam: Present: alert, oriented X3. Absent: facial droop, speech deficit - Skin Skin exam: Present: dry, intact, warm. Absent: rash Internal Medicine: Result - Labs CBC & Chem 7: 04/12/17 04:59 04/12/17 04:59 Labs: Short CBC 04/11/17 04/12/17 Range/Units 22:13 04:59 WBC 10.5 9.6 (4.3-11.1) K/mcL Hgb 12.9 12.3 L (12.9-16.9) g/dL Hct 39.1 38.0 (37.5-50.1) % Plt Count 156 163 (140-400) K/mcL Neutrophils # 6.5 (1.6-8.9) K/mcL BMP 04/12/17 04:59 Sodium 147 H Potassium 4.2 Chloride 118 H Carbon Dioxide 23 BUN 19 Creatinine 1.15 Glucose 100 H Calcium 9.4 - ABG Interpretation ABG results: PT/INR, D-dimer PT 12.4 Seconds (9.4-12.1) H 04/11/17 22:13 - Impressions Impressions Head CT 04/11/17 21:17 IMPRESSION: No acute intracranial abnormality. D/ / Nan Browning Cha, MD / Nan Browning Cha, MD Interpreting Provider: Nan Browning Cha, MD Consult Discharge Plan - Plan Referrals: NONE,PCP [Primary Care Provider] -
[2017-04-12] MEDS: RisperiDAL 3 MG TABLET PO SCH (20:54)
[2017-04-13 04:36] LABS: Basophils # 0.1 K/mcL (0.0-0.2); Basophils % 0.5 %; Eosinophils # 0.3 K/mcL (0.0-0.6); Eosinophils % 2.7 %; Hematocrit 39.5 % (37.5-50.1); Hemoglobin 13.4 g/dL (12.9-16.9); Immature Granulocytes % 0.7 % (0-4); Lymphocytes # 1.7 K/mcL (0.6-4.6); Lymphocytes % 17.7 %; Mean Corpuscular HGB Conc 33.9 g/dL (31.6-35.5); Mean Corpuscular Hemoglobin 31.9 pg (28.0-33.3); Mean Platelet Volume 9.6 fL (9.4-12.4); Monocytes # 1.3 K/mcL (0.0-1.3); Monocytes % 13.8 %; Neutrophils # 6.1 K/mcL (1.6-8.9); Platelet Count 181 K/mcL (140-400); Segmented Neutrophils % 64.6 %
[2017-04-13] MEDS: Loratadine 10 MG TABLET PO SCH (07:30)
[2017-04-13] MEDS: risperiDONE 1 MG TABLET PO SCH (07:30)
[2017-04-13] MEDS: *HR* HYDROcodone/Acet 5/325 mg TABLET PO PRN (07:30)
[2017-04-13] MEDS: Finasteride 5 MG TABLET PO SCH (07:30)
[2017-04-13] MEDS: Divalproex (12 HR) 250 MG TABLET PO SCH (07:30)
[2017-04-13] MEDS: Metoprolol XL (24 HR) Succ 25 MG TAB.ER.24H PO SCH (07:30)
--- NOTE | 2017-04-13 09:51 | Physician Discharge Referral ---
ExtendedCare Referral Info Transfer To: [facility] Provider in Charge after Transfer: PCP Institutional Level of Care: Skilled - Diagnosis (1) Generalized weakness Priority: Primary Status: Acute (2) Unsteady gait Priority: Secondary Status: Acute (3) Thrombocytopenia Priority: Secondary Status: Resolved (4) Leukocytosis Priority: Secondary Status: Resolved (5) HTN (hypertension), benign Priority: Secondary Status: Acute (6) Lung nodule, solitary Priority: Secondary Status: Acute (7) Dvt femoral (deep venous thrombosis) Priority: Secondary Status: Acute Prognosis: Good - Transfer Medications Home Medications: Albuterol Sulfate [Proair Hfa] 2 puff IH Q4H PRN 12/06/16 [History] Benztropine Mesylate 0.5 mg PO BID 12/06/16 [History] Budesonide/Formoterol 160/4.5 [Symbicort 160/4.5] 2 puff IH BIDR 12/06/16 [ History] Citalopram Hydrobromide [Citalopram HBr] 20 mg PO DAILY 12/06/16 [History] Divalproex Sodium [Depakote] 500 mg PO TID 12/06/16 [History] Finasteride [Proscar] 5 mg PO DAILY 12/06/16 [History] Haloperidol 10 mg PO BID 12/06/16 [History] Loratadine [Allergy Relief] 10 mg PO DAILY 12/06/16 [History] Metoprolol Succinate 25 mg PO DAILY 12/06/16 [History] Montelukast [Singulair] 10 mg PO QPM 12/06/16 [History] Oxybutynin Chloride [Ditropan Xl] 5 mg PO BID 12/06/16 [History] Oxygen 1 each .ROUTE AD 12/06/16 [History] Pravastatin Sodium [Pravachol] 80 mg PO DAILY 12/06/16 [History] Prazosin HCl [Minipress] 1 mg PO HS 12/06/16 [History] risperiDONE [Risperdal] 2 tab PO HS 12/06/16 [History] risperiDONE [Risperidone] 1 mg PO QAM 12/06/16 [History] Acetaminophen [Tylenol] 650 mg PO Q4-6H PRN 04/10/17 [History] Calcium Carb/Magnesium Hydrox [[facility]vs Antacid [place] Liquid] 10 ml PO Q6H PRN [History] Loperamide [Imodium] 2 mg PO 8XD PRN 04/10/17 [History] Magnesium Hydroxide [Milk of Magnesia] 400 mg PO QID PRN 04/10/17 [History] Allergies/Adverse Reactions: Allergies No Known Allergies Allergy (Verified 11/16/15 10:49) - Respiratory Orders Smoking Cessation: Smoking cessation has been advised. For more information, call the [place] Tobacco Quit Line at 5-398-KCYR-NOW. - Lab Orders Lab Orders: 2 Step Mantoux Test per State regulation, CBC, U/A, CXR yearly - Ancillary Orders May use pressure relief devices daily prn, May consult with Dentist, Technician Assistant, Medical Assistant Secretary PRN - Advance Directives Code Status: Full Code CERTIFICATION: I certify that the transfer of the above named patient to an Extended Care Facility is necessary for the continuing treatment of the diagnosis listed. The above information is true and accurate reflection of patient's current condition. Confidential - Redisclosure prohibited without a patient's written consent.
--- NOTE | 2017-04-13 09:54 | Discharge Summary ---
Date of Encounter: 04/13/17 Time of Encounter: 08:25 - Discharge Diagnosis (1) Generalized weakness Priority: Primary Status: Acute Comments: Pt states that he is feeling better today. He is sitting up on the side of the bed and appears to be improved over prior days. Pt has been completing PT daily and will benefit from continued PT. Labs have remained stable. Vitals are stable. He appears to be eating and drinking well. (2) Unsteady gait Priority: Secondary Status: Acute Comments: Continue PT/ OT at SNF. Pt was having difficulty ambulating and had had falls at home. Pt reported LLE pain and swelling, doppler positive for DVT. (3) Thrombocytopenia Priority: Secondary Status: Resolved Comments: Plt count 181 today. Transient thrombocytopenia on admission, uncertain of etiology. Resolved. (4) Leukocytosis Priority: Secondary Status: Resolved Comments: REsolved. Qualifiers: Leukocytosis type: unspecified Qualified Code(s): D72.829 - Elevated white blood cell count, unspecified (5) HTN (hypertension), benign Priority: Secondary Status: Acute Comments: Chronic. Well controlled in inpatient setting. Continue home medications. (6) Lung nodule, solitary Priority: Secondary Status: Acute Comments: Incidental finding on CT. Follow up outpatient with PCP. (7) Dvt femoral (deep venous thrombosis) Priority: Secondary Status: Acute Comments: Confirmed by doppler 04/11. LLE. Pt on heparin gtt. He will be sent to the SNF with rx for Xarelto 15mg po bid x 21 days, he will then need to take 20mg po daily. Facility physician to complete order for medication change. Qualifiers: Chronicity: acute Laterality: right Qualified Code(s): I82.411 - Acute embolism and thrombosis of right femoral vein - Discharge Medications Prescriptions: Rivaroxaban [Xarelto] 15 mg PO BID #42 tablet Home Medications: Albuterol Sulfate [Proair Hfa] 2 puff IH Q4H PRN 12/06/16 [History] Benztropine Mesylate 0.5 mg PO BID 12/06/16 [History] Budesonide/Formoterol 160/4.5 [Symbicort 160/4.5] 2 puff IH BIDR 12/06/16 [ History] Citalopram Hydrobromide [Citalopram HBr] 20 mg PO DAILY 12/06/16 [History] Divalproex Sodium [Depakote] 500 mg PO TID 12/06/16 [History] Finasteride [Proscar] 5 mg PO DAILY 12/06/16 [History] Haloperidol 10 mg PO BID 12/06/16 [History] Loratadine [Allergy Relief] 10 mg PO DAILY 12/06/16 [History] Metoprolol Succinate 25 mg PO DAILY 12/06/16 [History] Montelukast [Singulair] 10 mg PO QPM 12/06/16 [History] Oxybutynin Chloride [Ditropan Xl] 5 mg PO BID 12/06/16 [History] Oxygen 1 each .ROUTE AD 12/06/16 [History] Pravastatin Sodium [Pravachol] 80 mg PO DAILY 12/06/16 [History] Prazosin HCl [Minipress] 1 mg PO HS 12/06/16 [History] risperiDONE [Risperdal] 2 tab PO HS 12/06/16 [History] risperiDONE [Risperidone] 1 mg PO QAM 12/06/16 [History] Acetaminophen [Tylenol] 650 mg PO Q4-6H PRN 04/10/17 [History] Calcium Carb/Magnesium Hydrox [Cvs Antacid [place] Liquid] 10 ml PO Q6H PRN [History] Loperamide [Imodium] 2 mg PO 8XD PRN 04/10/17 [History] Magnesium Hydroxide [Milk of Magnesia] 400 mg PO QID PRN 04/10/17 [History] Rivaroxaban [Xarelto] 15 mg PO BID #42 tablet 04/13/17 [Rx] Allergies/Adverse Reactions: Allergies No Known Allergies Allergy (Verified 11/16/15 10:49) Procedures/tests Complete & Pending: Procedures Performed prior 72 hours Category Date Time Status CT head/brain wo con [CT] Stat Cat Scan 04/11/17 21:17 Completed Venous Doppler [EV venous imaging LE RT] Routine Y 04/11/17 18:09 Completed Date of admission: 04/10/17 02:46 Primary care physician: PCP NONE Consults: 04/10/17 03:09 Consult to Physical Therapy [CONS] Routine Comment: Evaluate, develop and implement POC Reason for Consult: falls needing placement 04/10/17 03:43 Consult to Stator Winder [CONS] Routine Reason for SW Consult: resume services 04/10/17 11:35 Consult to Occupational Therapy [CONS] Routine Comment: Evaluate, develop and implement POC Reason for Consult: weakness Discharging clinician: Shirley Umanzor Anticipated date of discharge: 04/13/17 - Patient Status Disposition: Transfer SNF Condition: Good Functional capacity at discharge: uses cane/walker Overall status at discharge: patient is progressing back to baseline - Discharge Instructions Follow Up With: NONE,PCP [Primary Care Provider] - Additional Instructions: Pt will need to have facility physician continue order for Xarelto after the 21 days for the dose change to 20mg po daily with meal. - Diet and Activity Activity: as per physical therapy Diet: advance to your usual diet Hospital course: Mr. Castaneda is a 71 year old male with history of schizophrenia, HTN who presented to the ER with actue onset weakness and falls at home. He lives in an assited living facilty and has had increasing weakness in the last 2 days. Pt states that he fell and hit the R side of his face. Pt does have slurred speech that he states that he has had for "all my life". He is alert, oriented, pleasant, and has no obvious injuries from falls. CT head negative for acute intracranial abnormality CT orbit negative. Cervical spine, knee, hip and ankle xrays negative. CT cervical spine showed mild to moderate multilevel degenerative changes. Pt had +2 non-pitting RLE edema that he states started about 1 week prior to admission and was causing him to fall and stated that it was painful. It was painful on exam. Doppler showed R common femoral through tibial vein with actue thrombosis. L lesser saphenous veing demonstrates superficial thrombosis. Pt was placed on heparin gtt and will start on Xarelto at ECF. Pt states that pain is somewhat better and swelling remains unchanged from initial assessment. Pt does have +1 pedal pulses vika. Pt has been participating in PT here and states that he is feeling better today. He will continue PT /OT at ECF for weakness. There was an incidental finding of a lung nodule on his chest xray, he will need to follow up outpatient for evaluation. On arrival, wbc was elevated, however it returned to normal. Pt also had thrombocytopenia, plt count WNL. Labs WNL, VSS. Pt will be admitted to [facility] for rehab. He is stable and appropriate for discharge. - Time Spent with Patient Total time spent providing and/or coordinating discharge services: Less than 30 minutes - Constitutional Vitals: Temp Pulse Resp BP Pulse Ox 98.6 F 81 16 124/75 94 04/13/17 06:51 04/13/17 06:51 04/13/17 06:51 04/13/17 06:51 04/13/17 06:51 General appearance: Present: cooperative, A&O X 3, pleasant, no acute distress, answers questions appropriately - Head Head exam: Present: normal inspection - Eye Eye exam: Present: normal appearance, conjuntiva pink - ENT ENT exam: Present: mucous membranes moist, normal exam - Neck Neck exam general surgery: Present: normal inspection. Absent: lymphadenopathy , tenderness - Respiratory Respiratory exam: Present: CTAB. Absent: rales, rhonchi, stridor, wheezes - Cardiovascular Cardiovascular exam: Present: RRR, +S1, +S2. Absent: diastolic murmur, systolic murmur - GI/Abdominal GI/Abdominal exam: Present: distended, normal bowel sounds, soft. Absent: hepatomegaly, tenderness - Extremities Exam Extremities exam: Present: pedal edema, warm, radial pulses palpable and symetrical. Absent: calf tenderness, tenderness Additional comments: RLE edema. +DVT. - Neurological Exam Neurological exam: Present: alert, oriented X3, speech deficit. Absent: facial droop - Skin Skin exam: Present: dry, intact, warm. Absent: rash
[2017-04-13] MEDS: Heparin 25,000 UNIT/500 ML D5W 25,000 UNIT/500 ML MLS IVC SCH (10:51)
[2017-04-13 10:58] VITALS: BP 115/72
[2017-04-13] MEDS: Budesonide/Formoterol 160/4.5 MDI IH SCH (11:02)
== END 2017-04-13 14:00 ==
LOC: EMEROO 23:01 → 3BNU 23:01
PROVIDERS: ADMIT Internal Medicine Hematology & Oncology; ATTEND Nurse Practitioner Family

== ENCOUNTER 2017-08-16 13:27 | Inpatient (IN) ==
--- NOTE | 2017-08-16 16:05 | Emergency Department Note ---
Disposition Clinical Impression: Deep vein thrombosis of lower extremity Qualifiers: Affected thrombotic vein of extremity: other lower extremity vein Chronicity: acute Laterality: right Qualified Code(s): I82.491 - Acute embolism and thrombosis of other specified deep vein of right lower extremity CKD (chronic kidney disease) Qualifiers: Chronic kidney disease stage: unspecified stage Qualified Code(s): N18.9 - Chronic kidney disease, unspecified Disposition: Admitted As Inpatient Condition: Undetermined Time of Disposition: 19:03 Extremity Problem HPI - General Chief complaint: ED Extremity Problem,Nontraumatic Stated complaint: right leg pain Time Seen by Provider: 08/16/17 15:46 Source: patient, EMS Mode of arrival: EMS Limitations: no limitations Nursing Notes Reviewed: Yes Vital Signs Reviewed: Yes - History of Present Illness HPI Narrative: 71-year-old male with baseline dementia comes from [facility] through our triage from EMS with concern for possible DVT in right lower extremity. The patient states that his right lower purees been bothering him and he sees had intermittent swelling of his right lower extremity over the course of the past week. The patient was sent here from [facility] for evaluation for right lower extremity DVT. The patient denies any chest pain or difficulty breathing. The patient is very difficult to understand is not the best historian area and he has missing dentition and has some slurring of his words. EMS noted to triage nurse this is baseline for the patient. In addition the patient lying is baseline demented. He is answering most questions correctly and following all commands correctly. He is alert and lying in the bed without any complaints other than a little bit of pain in his right lower extremity. Pt Subjective Complaint: extremity pain, extremity swelling Onset (ago): day(s) (5) Injury Location: right, lower extremity Pain Scale: 2 Quality: aching Radiation: none Improves with: nothing Worsens with: palpation Associated symptoms: Reports: denies other symptoms - Related Data Home Medications Medication Instructions Recorded Confirmed Benztropine Mesylate 0.5 mg PO BID 12/06/16 08/16/17 Budesonide/Formoterol 160/4.5 2 puff IH BIDR 12/06/16 08/16/17 [Symbicort 160/4.5] Citalopram Hydrobromide 20 mg PO DAILY 12/06/16 08/16/17 [Citalopram HBr] Divalproex Sodium [Depakote] 500 mg PO TID 12/06/16 08/16/17 Finasteride [Proscar] 5 mg PO DAILY 12/06/16 08/16/17 Haloperidol 10 mg PO BID 12/06/16 08/16/17 Loratadine [Allergy Relief] 10 mg PO DAILY 12/06/16 08/16/17 Metoprolol Succinate 25 mg PO DAILY 12/06/16 08/16/17 Montelukast [Singulair] 10 mg PO QPM 12/06/16 08/16/17 Oxybutynin Chloride [Ditropan Xl] 5 mg PO BID 12/06/16 08/16/17 Oxygen 1 each .ROUTE AD 12/06/16 08/16/17 Pravastatin Sodium [Pravachol] 80 mg PO DAILY 12/06/16 08/16/17 Prazosin HCl [Minipress] 1 mg PO HS 12/06/16 08/16/17 risperiDONE [Risperdal] 6 mg PO HS 12/06/16 08/16/17 risperiDONE [Risperidone] 1 mg PO QAM 12/06/16 08/16/17 Acetaminophen [Tylenol] 650 mg PO Q4-6H PRN 04/10/17 08/16/17 Loperamide [Imodium] 2 mg PO 8XD PRN 04/10/17 08/16/17 Magnesium Hydroxide [Milk of 400 mg PO QID PRN 04/10/17 08/16/17 Magnesia] Budesonide/Formoterol 160/4.5 1 puff IH BIDR 08/16/17 08/16/17 [Symbicort 160/4.5] Lisinopril 2.5 mg PO DAILY 08/16/17 08/16/17 Rivaroxaban [Xarelto] 20 mg PO DAILY 08/16/17 08/16/17 Allergies Allergy/AdvReac Type Severity Reaction Status Date / Time No Known Allergies Allergy Verified 08/16/17 13:50 All systems ED: reviewed and negative except as stated. Constitutional: Denies: fever, chills, weakness ENT ED: Denies: congestion Cardiovascular: Denies: chest pain Respiratory: Denies: dyspnea Gastrointestinal: Denies: abdominal pain Genitourinary: Denies: dysuria Musculoskeletal: Reports: myalgia. Denies: back pain, neck pain, arthralgia Integumentary: Denies: rash, lesions Neurological: Reports: confusion (Baseline). Denies: headache, weakness, numbness, abnormal gait Past Medical History - Past Medical History Attestation: Yes The following information was validated with the patient. Source: patient Medical history: Reports: COPD, hyperlipidemia, hypertension Surgical history: Reports: no surgical history Psychiatric history: Reports: prior suicide attempt, schizophrenia - Social History Smoking Status: Current every day smoker Smokeless Tobacco Status: No Alcohol use: Reports: none Drug use: Reports: none Physical Exam - General Limitations: no limitations General appearance: alert, in no apparent distress - Head Head exam: atraumatic, normocephalic, normal inspection - Eye Eye exam: Present: normal appearance, PERRL, EOMI - ENT ENT exam: normal exam, normal oropharynx, mucous membranes moist - Neck Neck exam: Present: normal inspection - Chest Chest inspection: Present: normal inspection, symmetric chest wall rise - Respiratory Respiratory exam: Present: normal lung sounds bilaterally - Cardiovascular Cardiovascular exam: Present: regular rate, normal rhythm, normal heart sounds - Abdominal Exam Abdominal exam: Present: soft, Non-Tender. Absent: tenderness, distention, guarding, rebound, rigidity - Extremities Exam Extremities exam: Present: full ROM, tenderness (Right lower extremity in the calf and popliteal region, mild amount of swelling, no color change.) Course - Reevaluation(s) Reevaluation #1: Patient was noted to be positive right lower extremity DVT from the SFA down to the popliteal. There was noted to have some small collaterals but it appeared acute on examination. We will obtain basic labs and discharge the patient back to the [facility] on Lovenox injections. Time: 17:26 Vital Signs Temperature 98.0 F 08/16/17 13:47 Pulse Rate 67 08/16/17 13:47 Respiratory Rate 18 08/16/17 13:47 Blood Pressure 106/71 08/16/17 13:47 O2 Sat by Pulse Oximetry 94 08/16/17 13:47 Temperature 98.3 F 08/16/17 20:48 Pulse Rate 80 08/16/17 20:48 Respiratory Rate 16 08/16/17 20:48 Blood Pressure 143/81 08/16/17 20:48 O2 Sat by Pulse Oximetry 97 08/16/17 20:48 Oxygen Delivery Oxygen Delivery Room Air Extremity Problem, Nontraumati - MDM Narrative Medical decision making narrative: Patient noted to have poor creatinine clearance and a reduced GFR. His creatinine clearance is 26 so Lovenox injections are not indicated neither are novel anticoagulants. At this time we will place an IV and start the patient on heparin and admit the patient to the hospital for further care and workup. Patient made aware and agrees to plan. Accepted by Dr. Sabillon. - Lab Data Lab results reviewed: Yes I reviewed the patient's lab results. Result diagrams: 08/16/17 17:29 08/16/17 17:29 Lab Results 08/16/17 08/16/17 08/16/17 Range/Units 17:29 17:29 17:29 WBC 7.8 (4.3-11.1) K/mcL RBC 4.74 (4.19-5.50) M/mcL Hgb 14.5 (12.9-16.9) g/dL Hct 43.8 (37.5-50.1) % MCV 92.4 (83.0-100.0) fL MCH 30.6 (28.0-33.3) pg MCHC 33.1 (31.6-35.5) g/dL RDW 12.9 (11.5-14.5) % Plt Count 149 (140-400) K/mcL MPV 10.7 (9.4-12.4) fL Immature Gran % 0.3 (0-4) % Seg Neutrophils % 59.3 % Lymphocytes % 27.4 % Monocytes % 9.4 % Eosinophils % 3.1 % Basophils % 0.5 % Neutrophils # 4.6 (1.6-8.9) K/mcL Lymphocytes # 2.1 (0.6-4.6) K/mcL Monocytes # 0.7 (0.0-1.3) K/mcL Eosinophils # 0.2 (0.0-0.6) K/mcL Basophils # 0.0 (0.0-0.2) K/mcL PT 14.2 H (9.4-12.1) Seconds INR 1.3 APTT 37.6 H (26.0-36.0) Seconds Sodium 139 (136-145) mEq/L Potassium 4.5 (3.5-4.5) mEq/L Chloride 106 (98-109) mEq/L Carbon Dioxide 23 (19-29) mEq/L BUN 22 (8-26) mg/dL Creatinine 1.48 H (0.72-1.25) mg/dL Est GFR ( Amer) 57 L (> 60) Est GFR (Non-Af Amer) 47 L (> 60) BUN/Creatinine Ratio 15 (6-26) Glucose 107 H (70-99) mg/dL Calculated Osmolality 292 (280-300) Calcium 9.9 (8.6-10.8) mg/dL Attestation Statement - Attestation Attestation: I examined this patient and my medical decision-making was reviewed with the Resident Physician. I agree with the documented findings, disposition and treatment plan as described except to the extent set forth below. Findings consistent with DVT. Patient has poor creatinine clearance. Plan to admit for evaluation of DVT in the setting of poor kidney function and after initiation of heparin.
[2017-08-16 17:43] LABS: Basophils % 0.5 %; Eosinophils # 0.2 K/mcL (0.0-0.6); Eosinophils % 3.1 %; Hematocrit 43.8 % (37.5-50.1); Hemoglobin 14.5 g/dL (12.9-16.9); Immature Granulocytes % 0.3 % (0-4); Lymphocytes # 2.1 K/mcL (0.6-4.6); Lymphocytes % 27.4 %; Mean Corpuscular HGB Conc 33.1 g/dL (31.6-35.5); Mean Corpuscular Hemoglobin 30.6 pg (28.0-33.3); Mean Corpuscular Volume 92.4 fL (83.0-100.0); Mean Platelet Volume 10.7 fL (9.4-12.4); Monocytes # 0.7 K/mcL (0.0-1.3); Monocytes % 9.4 %; Neutrophils # 4.6 K/mcL (1.6-8.9); Platelet Count 149 K/mcL (140-400); Red Blood Count 4.74 M/mcL (4.19-5.50); Red Cell Distribution Width 12.9 % (11.5-14.5); Segmented Neutrophils % 59.3 %
[2017-08-16 17:52] LABS: Calcium 9.9 mg/dL (8.6-10.8); Potassium 4.5 mEq/L (3.5-4.5)
[2017-08-16] MEDS ORDERED: *HR* Heparin 5,000 UNIT/ML VIAL IVP ONE (18:32)
[2017-08-16] MEDS ORDERED: *HR* Heparin 5,000 UNIT/ML VIAL IVP PRN ×2 (18:32)
[2017-08-16] MEDS ORDERED: Heparin 25,000 UNIT/500 ML D5W 25,000 UNIT/500 ML MLS IVC SCH (18:45)
[2017-08-16 19:01] LABS: INR 1.3; Prothrombin Time 14.2 Seconds (9.4-12.1)
[2017-08-16 19:03] LABS: Activated Partial Thrombo Time 37.6 Seconds (26.0-36.0)
[2017-08-16] MEDS ORDERED: Naloxone 0.4 MG/ML INJ IVP PRN (20:52)
[2017-08-16] MEDS ORDERED: Ondansetron 4 MG/2 ML VIAL IVP PRN (20:52)
[2017-08-16] MEDS ORDERED: *HR* Morphine 2 MG/ML SYRINGE IVP PRN (20:52)
[2017-08-16] MEDS ORDERED: Acetaminophen 325 MG TABLET PO PRN (20:52)
--- NOTE | 2017-08-16 20:56 | Internal Med History&Physical ---
Date of Encounter: 08/16/17 Time of Encounter: 20:40 Assessment and Plan (1) Deep vein thrombosis of lower extremity Current visit: Yes Status: Acute Acute right lower extremity DVT, SFA to popliteal - h/o DVT in right common femoral and tibial vein in March 2017 Continue IV Heparin as per protocol, may need to start Coumadin Unclear if patient has been taking Xarelto at home Ultrasound Doppler - positive for right lower extremity DVT INR - 1.3 Cardiac telemetry, labs in a.m., monitor closely Qualifiers: Affected thrombotic vein of extremity: other lower extremity vein Chronicity: acute Laterality: right Qualified Code(s): I82.491 - Acute embolism and thrombosis of other specified deep vein of right lower extremity (2) Bipolar disorder Current visit: Yes Status: Chronic Bipolar disorder, chronic - stable Continue home dose of Haldol, Celexa, Risperdal, Depakote, Cogentin Qualifiers: Active/Remission status: currently active Current bipolar episode type: mixed Psychotic features: without psychotic features Qualified Code(s): F31.63 - Bipolar disorder, current episode mixed, severe, without psychotic features (3) Essential hypertension Current visit: Yes Status: Chronic Essential hypertension, controlled, monitor Continue home dose of Zestril, Minipress, Toprol-XL (4) COPD (chronic obstructive pulmonary disease) Current visit: Yes Status: Chronic COPD, stable - not in exacerbation Continue Symbicort Qualifiers: COPD type: unspecified COPD Qualified Code(s): J44.9 - Chronic obstructive pulmonary disease, unspecified (5) Lung nodule, solitary Current visit: Yes Status: Chronic Right middle lobe lung nodule Patient follows up with oncology regularly (6) HLD (hyperlipidemia) Current visit: Yes Status: Chronic Continue home dose of Zocor Qualifiers: Hyperlipidemia type: unspecified Qualified Code(s): E78.5 - Hyperlipidemia , unspecified (7) CKD (chronic kidney disease) Current visit: Yes Status: Chronic Chronic kidney disease stage III, stable - creatinine and GFR baseline Repeat labs in a.m. 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 Castaneda is a 71 year old male with past medical history of COPD, hyperlipidemia, hypertension, bipolar disorder, chronic kidney disease, history of DVT, right lung middle lobe nodule and light chain disease. He presents to ED with complaints of right lower leg pain and swelling. Examined in the room. Patient is awake and alert. He provides limited history , but able to answer questions appropriately and follows verbal commands. No family members at bedside. Patient states his right lower leg has been bothering him over the past one week. Complains of pain and intermittent swelling. States it is dull and aching. Rates it 3/10. Worse with movement and palpation. No alleviating factors. No other associated symptoms. Patient denies chest pain or shortness of breath. Denies headache or dizziness or cough. No other acute complaints at this time. Patient states he lives at an assisted living facility. Patient's medication list has Xarelto listed, but it is unclear if patient is taking this medication. Initial workup in the ED is significant for positive right lower extremity DVT from the SFA down to the popliteal. Patient has been started on IV heparin protocol. Patient may need to be switched to Coumadin and will need bridging with IV heparin. Patient has been explained about his condition and plan of care in detail. He understood and agreed. No unanswered questions. CODE STATUS full code. Past Med Surg Social Fam HX - Past Medical History Medical history: COPD, hyperlipidemia, hypertension Psychiatric history: prior suicide attempt, schizophrenia - Past Surgical History Surgical History: no surgical history - Social History Smoking Status: Former smoker Smokeless Tobacco Status: No Alcohol use: none Drug use: none - Family History Father Living Status: Hx Family Cancer: Yes (lung CA) Internal Medicine - H&P: Meds Benztropine Mesylate 0.5 mg PO BID 12/06/16 [History] Budesonide/Formoterol 160/4.5 [Symbicort 160/4.5] 2 puff IH BIDR 12/06/16 [ History] Citalopram Hydrobromide [Citalopram HBr] 20 mg PO DAILY 12/06/16 [History] Divalproex Sodium [Depakote] 500 mg PO TID 12/06/16 [History] Finasteride [Proscar] 5 mg PO DAILY 12/06/16 [History] Haloperidol 10 mg PO BID 12/06/16 [History] Loratadine [Allergy Relief] 10 mg PO DAILY 12/06/16 [History] Metoprolol Succinate 25 mg PO DAILY 12/06/16 [History] Montelukast [Singulair] 10 mg PO QPM 12/06/16 [History] Oxybutynin Chloride [Ditropan Xl] 5 mg PO BID 12/06/16 [History] Oxygen 1 each .ROUTE AD 12/06/16 [History] Pravastatin Sodium [Pravachol] 80 mg PO DAILY 12/06/16 [History] Prazosin HCl [Minipress] 1 mg PO HS 12/06/16 [History] risperiDONE [Risperdal] 6 mg PO HS 12/06/16 [History] risperiDONE [Risperidone] 1 mg PO QAM 12/06/16 [History] Acetaminophen [Tylenol] 650 mg PO Q4-6H PRN 04/10/17 [History] Loperamide [Imodium] 2 mg PO 8XD PRN 04/10/17 [History] Magnesium Hydroxide [Milk of Magnesia] 400 mg PO QID PRN 04/10/17 [History] Budesonide/Formoterol 160/4.5 [Symbicort 160/4.5] 1 puff IH BIDR 08/16/17 [ History] Lisinopril 2.5 mg PO DAILY 08/16/17 [History] Rivaroxaban [Xarelto] 20 mg PO DAILY 08/16/17 [History] 3 Allergy/AdvReac Type Severity Reaction Status Date / Time No Known Allergies Allergy Verified 08/16/17 13:50 All Systems PM: A 10-system review of systems was performed and is negative for pertinent findings except as documented above in the HPI. - Constitutional Constitutional: fatigue, no fever(s), no weakness - EENT Eyes: no blurry vision - Cardiovascular Cardiovascular ROS IM: no chest pain, no diaphoresis, no dyspnea, no dyspnea on exertion, no edema, no lightheadedness, no orthopnea, no palpitations, no syncope - Respiratory Respiratory: no cough, no dyspnea, no hemoptysis, no dyspnea on exertion, no wheezing, no chest congestion - Gastrointestinal Gastrointestinal: no abdominal pain, no bloating, no cramping, no diarrhea, no hematemesis, no hematochezia, no nausea, no vomiting - Genitourinary Genitourinary ROS male: no dysuria - Musculoskeletal Additional comments: Right lower leg pain and swelling - Neurological Neurological ROS: no abnormal gait, no confusion, no dizziness, no focal weakness, no loss of vision, no numbness, no tingling - Constitutional Vitals: Temp Pulse Resp BP Pulse Ox 98.3 F 80 16 143/81 97 08/16/17 20:48 08/16/17 20:48 08/16/17 20:48 08/16/17 20:48 08/16/17 20:48 General appearance: Present: cooperative, A&O X 2, pleasant, no acute distress, answers questions appropriately Exam: Patient is awake and alert. Able to follow commands well. He does not verbalize well due to poor dentition. Able to answer questions appropriately. - Head Head exam: Present: atraumatic - Eye Eye exam: Present: EOMI - ENT ENT exam: Present: mucous membranes dry - Respiratory Respiratory exam: Present: CTAB. Absent: accessory muscle use, chest wall tenderness, rales, respiratory distress, rhonchi, wheezes, tachypnea - Cardiovascular Cardiovascular exam: Present: RRR, +S1, +S2 - GI/Abdominal GI/Abdominal exam: Present: soft, no peritoneal signs. Absent: distended, firm , guarding, tenderness - Extremities Exam Extremities exam: Present: calf tenderness (Right calf tenderness), radial pulses palpable and symmetrical. Absent: cyanotic, pedal edema Additional comments: No obvious edema over right lower leg. - Neurological Exam Neurological exam: Present: alert, no focal deficits. Absent: facial droop, speech deficit Additional comments: Patient is awake and alert. He does answer questions appropriately. Follows all commands. Does not verbalize well due to poor dentition. No focal neurological deficits. He is oriented to place and person. Internal Med - H&P Results - Labs CBC & Chem 7: 08/17/17 00:13 08/17/17 00:13
[2017-08-16] MEDS ORDERED: NON-FORMULARY MEDICATION 1 EACH EACH (Oxygen [Oxygen] 1 EACH) SCH (21:45)
[2017-08-16] MEDS: Budesonide/Formoterol 160/4.5 MDI IH SCH (22:50)
[2017-08-16] MEDS ORDERED: MOM Conc 10 ML UD.LIQ PO PRN (23:16)
[2017-08-16] MEDS: Divalproex (12 HR) 500 MG TABLET PO SCH (23:48)
[2017-08-17 00:22] LABS: Basophils % 0.5 %; Eosinophils # 0.3 K/mcL (0.0-0.6); Eosinophils % 3.1 %; Hematocrit 43.4 % (37.5-50.1); Hemoglobin 14.6 g/dL (12.9-16.9); Immature Granulocytes % 0.2 % (0-4); Lymphocytes # 2.2 K/mcL (0.6-4.6); Lymphocytes % 25.8 %; Mean Corpuscular HGB Conc 33.6 g/dL (31.6-35.5); Mean Corpuscular Hemoglobin 30.9 pg (28.0-33.3); Mean Corpuscular Volume 91.9 fL (83.0-100.0); Mean Platelet Volume 10.8 fL (9.4-12.4); Monocytes # 0.9 K/mcL (0.0-1.3); Monocytes % 10.4 %; Neutrophils # 5.1 K/mcL (1.6-8.9); Platelet Count 151 K/mcL (140-400); Red Blood Count 4.72 M/mcL (4.19-5.50); Red Cell Distribution Width 12.8 % (11.5-14.5)
[2017-08-17 00:29] LABS: INR 1.3; Prothrombin Time 13.9 Seconds (9.4-12.1)
[2017-08-17 00:34] LABS: Calcium 10.1 mg/dL (8.6-10.8); Potassium 4.1 mEq/L (3.5-4.5)
[2017-08-17 00:44] LABS: Activated Partial Thrombo Time 244.9 Seconds (26.0-36.0)
[2017-08-17 01:00] LABS: Heparin anti-factor XA UFH 1.26 IU/mL (0.30-0.70)
[2017-08-17] MEDS: Famotidine 20 MG/2 ML VIAL IVP SCH ×2 (05:42→18:16)
[2017-08-17] MEDS: Budesonide/Formoterol 160/4.5 MDI IH SCH ×2 (07:56→19:42)
--- NOTE | 2017-08-17 09:25 | Oncology Inp Consult Note ---
<Graham Mckeon Jr - Last Filed: 08/17/17 13:33> Date of Encounter: 08/17/17 Time of Encounter: 09:29 Assessment and Plan (1) Deep vein thrombosis of lower extremity Status: Acute Assessment and plan: This is a 71 year old male patient of Dr Foreign Daniels at [facility]. He is being treated for a known clot of the right lower extremity from April 2017. He had DVT of right common femoral, right superficial femoral, and right politeal. Patient was placed on xarelto . [facility] . At that time, no clot issues or bleeding related to xarelto. At that time, he had a PET scan for lung mass that is just under observation at this point. Patient with an increase in right lower extremity leg pain, and came to ER for evaluation. New venous imaging on this admission shows normal right femoral, but, an occlusive thrombus seen in the right distal superficial femoral. It demonstrates an incompressible vein. Flow was absent and it did not augment. Also, an occlusive thrombus seen in the right popliteal. It demonstrates an incompressible vein. Flow was absent and it did not augment. Changes noted compared to prior study dated: 04/11/2017. Coumadin an alternative, but patient may have difficulty with INR checks and frequent appointments. Also, question of compliance of taking his xarelto medication reported by his sisters in our outpatient clinic, due to psych history. Plan: Stop home xarelto. Keep on heparin drip until tomorrow morning, then switch to eliquis 5mg PO BID. This is a good choice due to CKD III. Dr Daniels should see him within 1 week after discharge for follow up. Qualifiers: Affected thrombotic vein of extremity: other lower extremity vein Chronicity: acute Laterality: right Qualified Code(s): I82.491 - Acute embolism and thrombosis of other specified deep vein of right lower extremity (2) Lung nodule, solitary Status: Chronic (3) Light chain disease Status: Chronic (4) CKD (chronic kidney disease) Status: Chronic Qualifiers: Chronic kidney disease stage: stage 3 (moderate) Qualified Code(s): N18.3 - Chronic kidney disease, stage 3 (moderate) (5) Bipolar disorder Status: Chronic Qualifiers: Active/Remission status: currently active Current bipolar episode type: mixed Psychotic features: without psychotic features Qualified Code(s): F31.63 - Bipolar disorder, current episode mixed, severe, without psychotic features - Data of Consult Patient: known to practice within the last 3 years Consult date: 08/17/17 Requesting Physician: Maxine Klein MD Primary Care Provider: Jeanne Shields CNP - Consult Narrative Reason for consult: RLE DVT History of present illness: Mr. Castaneda is a 71 year old male with history of right lower extremity DVT on 04/11/17. Treated by Dr Foreign Daniels at [facility] forclinic for light chain disease and right lower extremity DVT on xarelto anticoagulation 04/11/17, and RML lung nodule under observation. He has medical history significant for schizophrenia, lives in assisted living facility, hypertension, arthritis COPD, stable lung nodule,and kappa light chains in urine. Lab works from August 2016 showed a normal CBC with mild leukocytosis, creatinine was elevated at 1.5 and Lab and was slightly elevated at 1.9 a 24- hour urine showed a urine free kappa to lambda ratio of 24. Patient has limited ambulation due to back and lower extremity problems. He follows up with bone and joint he denies any neuropathy numbness tingling in the lower extremities. A CT scan from May 2016 shows right lung lesion not much changed from prior. Patient also reports having had a biopsy of this lung lesion. SPEP no paraproteins. Urine kappa.lamda 20. CBCD nl Skeletal survey no lytic lesions He follows with nephrology for CKD III. Patient had a CT scan of the chest 01/04/2017 and abdomen and pelvis, abdomen and pelvis scan showed a stellate lesion in the right middle lobe measuring 1.8 x 0.8 cm and a cavitary lesion with surrounding nodularity in the right upper lobe. Repeat CT scan of the chest 06/21 2017, Spiculated right middle lobe lesion has significantly increased in size and now measures 3.5 x 2.0 cm. He is having PET imaging. 07/07/17 a PET scan for lung nodule ordered by Pulmonology. Lung nodule remains under observation. He also had a DVT--Doppler from April 2017 that showed right common femoral to tibial vein acute thrombosis in the right side and left lesser saphenous vein acute thrombosis. He was placed on xarelto--and family reported that he was inconsistent with his xarelto compliance Admitted on 08/16/17 for right leg pain. Venous duples shows changes of RLE compared to 04/11/17. Placed on heparin drip, and hematology was consulted fore recommendations. Past Med Surg Social Fam HX - Past Medical History Medical history: COPD, hyperlipidemia, hypertension Psychiatric history: prior suicide attempt, schizophrenia - Past Surgical History Surgical History: no surgical history - Social History Smoking Status: Former smoker Smokeless Tobacco Status: No Alcohol use: none Drug use: none - Family History Father Living Status: Hx Family Cancer: Yes (lung CA) Medications and Allergies Benztropine Mesylate 0.5 mg PO BID 12/06/16 [History] Budesonide/Formoterol 160/4.5 [Symbicort 160/4.5] 2 puff IH BIDR 12/06/16 [ History] Citalopram Hydrobromide [Citalopram HBr] 20 mg PO DAILY 12/06/16 [History] Divalproex Sodium [Depakote] 500 mg PO TID 12/06/16 [History] Finasteride [Proscar] 5 mg PO DAILY 12/06/16 [History] Haloperidol 10 mg PO BID 12/06/16 [History] Loratadine [Allergy Relief] 10 mg PO DAILY 12/06/16 [History] Metoprolol Succinate 25 mg PO DAILY 12/06/16 [History] Montelukast [Singulair] 10 mg PO QPM 12/06/16 [History] Oxybutynin Chloride [Ditropan Xl] 5 mg PO BID 12/06/16 [History] Oxygen 1 each .ROUTE AD 12/06/16 [History] Pravastatin Sodium [Pravachol] 80 mg PO DAILY 12/06/16 [History] Prazosin HCl [Minipress] 1 mg PO HS 12/06/16 [History] risperiDONE [Risperdal] 6 mg PO HS 12/06/16 [History] risperiDONE [Risperidone] 1 mg PO QAM 12/06/16 [History] Acetaminophen [Tylenol] 650 mg PO Q4-6H PRN 04/10/17 [History] Loperamide [Imodium] 2 mg PO 8XD PRN 04/10/17 [History] Magnesium Hydroxide [Milk of Magnesia] 400 mg PO QID PRN 04/10/17 [History] Budesonide/Formoterol 160/4.5 [Symbicort 160/4.5] 1 puff IH BIDR 08/16/17 [ History] Lisinopril 2.5 mg PO DAILY 08/16/17 [History] Rivaroxaban [Xarelto] 20 mg PO DAILY 08/16/17 [History] 3 Allergy/AdvReac Type Severity Reaction Status Date / Time No Known Allergies Allergy Verified 08/16/17 13:50 Musculoskeletal: Present: muscle cramps (right leg) Oncology - Exam - Constitutional Vitals: Temp Pulse Resp BP Pulse Ox 97.8 F 64 16 130/95 97 08/17/17 06:16 08/17/17 06:16 08/17/17 07:56 08/17/17 07:56 08/17/17 07:56 Oncology - Results Labs: Short CBC 08/17/17 Range/Units 00:13 WBC 8.5 (4.3-11.1) K/mcL Hgb 14.6 (12.9-16.9) g/dL Hct 43.4 (37.5-50.1) % Plt Count 151 (140-400) K/mcL Neutrophils # 5.1 (1.6-8.9) K/mcL BMP 08/17/17 00:13 Sodium 141 Potassium 4.1 Chloride 109 Carbon Dioxide 25 BUN 20 Creatinine 1.43 H Glucose 106 H Calcium 10.1 Consult Discharge Plan - Plan Referrals: Jeanne Shields CNP [Primary Care Provider] - <Foreign Daniels - Last Filed: 08/17/17 17:14> Date of Encounter: 08/17/17 - Data of Consult Requesting Physician: Maxine Klein MD Primary Care Provider: Jeanne Shields CNP - Consult Narrative History of present illness: Hospitalization report/records reviewed. Patient stated that he is here because of the legs. Due to mental status limited hx available and limited understanding He was recommended to continue heparin for the acute period and transition to eliquis. Renal insufficiency-need to monitor labs after discharge. He will f/u as an outpatient iwt hhis sisters for monitoring rn long term care anticoagulation. I examined this patient and my medical decision-making was reviewed with the Advanced Practice Nurse. I agree with the documented findings, disposition and treatment plan as described except to the extent set forth below. Oncology - Exam - Constitutional Vitals: Temp Pulse Resp BP Pulse Ox 98.0 F 85 15 111/77 95 08/17/17 15:17 08/17/17 15:17 08/17/17 15:17 08/17/17 15:17 08/17/17 15:17 General appearance: obese - Head Head exam: Present: atraumatic, normal inspection - Eye Eye exam: Present: sclera anicteric - ENT ENT exam: Present: mucous membranes moist - Respiratory Respiratory exam: Present: CTAB - Cardiovascular Cardiovascular exam: Present: +S1, +S2 - Extremities Exam Additional comments: rt lower ext min swelling - Neurological Exam Neurological exam: Present: alert, CN II-XII intact, oriented X3 - Skin Skin exam: Present: dry Oncology - Results Labs: Short CBC 08/17/17 Range/Units 00:13 WBC 8.5 (4.3-11.1) K/mcL Hgb 14.6 (12.9-16.9) g/dL Hct 43.4 (37.5-50.1) % Plt Count 151 (140-400) K/mcL Neutrophils # 5.1 (1.6-8.9) K/mcL BMP 08/17/17 00:13 Sodium 141 Potassium 4.1 Chloride 109 Carbon Dioxide 25 BUN 20 Creatinine 1.43 H Glucose 106 H Calcium 10.1
[2017-08-17] MEDS: Loratadine 10 MG TABLET PO SCH (10:12)
[2017-08-17] MEDS: Metoprolol XL (24 HR) Succ 25 MG TAB.ER.24H PO SCH (10:12)
[2017-08-17] MEDS: Divalproex (12 HR) 500 MG TABLET PO SCH ×3 (10:12→20:46)
[2017-08-17] MEDS: Finasteride 5 MG TABLET PO SCH (10:13)
[2017-08-17] MEDS: risperiDONE 1 MG TABLET PO SCH (10:13)
--- NOTE | 2017-08-17 11:39 | Internal Med Progress Note ---
Date of Encounter: 08/17/17 Time of Encounter: 11:37 - Assessment and plan (1) Deep vein thrombosis of lower extremity Current Visit: Yes Status: Acute Assessment and plan: Acute RLE DVT despite being on anticoagulation therapy with Xarelto D/C Xarelto, continue heparin gtt will start Eliquis in am hematology consultation appreciated Qualifiers: Affected thrombotic vein of extremity: other lower extremity vein Chronicity: acute Laterality: right Qualified Code(s): I82.491 - Acute embolism and thrombosis of other specified deep vein of right lower extremity (2) Lung nodule, solitary Current Visit: Yes Status: Chronic (3) HLD (hyperlipidemia) Current Visit: Yes Status: Chronic Assessment and plan: continue home meds Qualifiers: Hyperlipidemia type: unspecified Qualified Code(s): E78.5 - Hyperlipidemia , unspecified (4) CKD (chronic kidney disease) Current Visit: Yes Status: Chronic Assessment and plan: renal function at baseline continue to monitor Qualifiers: Chronic kidney disease stage: stage 3 (moderate) Qualified Code(s): N18.3 - Chronic kidney disease, stage 3 (moderate) (5) Essential hypertension Current Visit: Yes Status: Chronic Assessment and plan: Noted to be hypertensive this morning however BP improved after receiving home medications repeat BP: 110/76 continue home meds closely monitor BP (6) COPD (chronic obstructive pulmonary disease) Current Visit: Yes Status: Chronic Assessment and plan: no signs of exacerbation continue home meds Qualifiers: COPD type: unspecified COPD Qualified Code(s): J44.9 - Chronic obstructive pulmonary disease, unspecified (7) Bipolar disorder Current Visit: Yes Status: Chronic Assessment and plan: continue home meds Qualifiers: Active/Remission status: currently active Current bipolar episode type: mixed Psychotic features: without psychotic features Qualified Code(s): F31.63 - Bipolar disorder, current episode mixed, severe, without psychotic features - Subjective Interval history: Patient seen and examined at bedside. Resting in bed and reports of feeling better compared to previous day but continues to have persistent right leg pain Pt noted to have RLE DVT despite being on xarelto Hematology consulted in regards to assisted anticoagulation will continue heparin gtt until tomorrow and transition to Eliquis 5mg PO BID then as per hematology recommendations Likely d/c in am - Constitutional Vitals: Temp Pulse Resp BP Pulse Ox 97.8 F 82 15 122/103 97 08/17/17 10:14 08/17/17 10:14 08/17/17 10:14 08/17/17 10:14 08/17/17 10:14 General appearance: Present: cooperative, A&O X 3, pleasant, no acute distress, answers questions appropriately - Head Head exam: Present: atraumatic, normocephalic - Eye Eye exam: Present: conjuntiva pink, sclera anicteric - Respiratory Respiratory exam: Present: CTAB. Absent: respiratory distress, wheezes - Cardiovascular Cardiovascular exam: Present: RRR, +S1, +S2. Absent: diastolic murmur, gallop, rubs, systolic murmur - GI/Abdominal GI/Abdominal exam: Present: normal bowel sounds, soft, no peritoneal signs. Absent: distended, tenderness - Extremities Exam Extremities exam: Present: calf tenderness (RLE ), warm, radial pulses palpable and symmetrical. Absent: pedal edema - Neurological Exam Neurological exam: Present: alert, oriented X3 Internal Medicine: Result - Labs CBC & Chem 7: 08/17/17 00:13 08/17/17 00:13 Labs: Short CBC 08/17/17 Range/Units 00:13 WBC 8.5 (4.3-11.1) K/mcL Hgb 14.6 (12.9-16.9) g/dL Hct 43.4 (37.5-50.1) % Plt Count 151 (140-400) K/mcL Neutrophils # 5.1 (1.6-8.9) K/mcL BMP 08/17/17 00:13 Sodium 141 Potassium 4.1 Chloride 109 Carbon Dioxide 25 BUN 20 Creatinine 1.43 H Glucose 106 H Calcium 10.1 - ABG Interpretation ABG results: PT/INR, D-dimer PT 13.9 Seconds (9.4-12.1) H 08/17/17 00:13 Consult Discharge Plan - Plan Referrals: Jeanne Shields, [facility] SPECIALIST [Primary Care Provider] -
[2017-08-17] MEDS ORDERED: *HR* Warfarin 5 MG TABLET PO SCH (18:00)
--- NOTE | 2017-08-17 18:56 | Electrocardiograph Report ---
[place] [id number] Test Date: 2017-08-16 Pat Name: Miki Castaneda Department: 111 Room: 2NE26 Gender: M Office Nurse: JENSEN : 1945 Requested By: Rajesh Kramer Order Number: [id number] Reading MD: Barrington Castellanos DO Measurements Intervals [place] Rate: 68 P: 48 NM: 152 QRS: -8 QRSD: 84 T: 27 QT: 399 QTc: 417 Interpretive Statements SINUS RHYTHM Electronically Signed On 08-17-2017 18:54:56 EST by Barrington Castellanos DO
--- NOTE | 2017-08-17 18:57 | Electrocardiograph Report ---
[address] [place] [address] Test Date: 2017-08-17 Pat Name: Miki Castaneda Department: 111 Room: 2NE26 Gender: M [employer] Head: JENSEN : 1945 Requested By: Maxine Klein Order Number: [id number] Reading MD: Barrington Castellanos DO Measurements Intervals [place] Rate: 68 P: 53 TN: 152 QRS: -15 QRSD: 81 T: 3 QT: 399 QTc: 416 Interpretive Statements SINUS RHYTHM POSSIBLE INFERIOR MYOCARDIAL INFARCTION, AGE UNDETERMINED Electronically Signed On 08-17-2017 18:55:51 EST by Barrington Castellanos DO
[2017-08-17] MEDS ORDERED: RisperiDAL 3 MG TABLET PO SCH (21:00)
[2017-08-18] MEDS: Famotidine 20 MG/2 ML VIAL IVP SCH (05:39)
[2017-08-18 06:07] LABS: Basophils % 0.5 %; Eosinophils # 0.3 K/mcL (0.0-0.6); Eosinophils % 3.6 %; Hematocrit 43.2 % (37.5-50.1); Hemoglobin 14.4 g/dL (12.9-16.9); Immature Granulocytes % 0.3 % (0-4); Lymphocytes # 2.6 K/mcL (0.6-4.6); Lymphocytes % 33.1 %; Mean Corpuscular HGB Conc 33.3 g/dL (31.6-35.5); Mean Corpuscular Hemoglobin 31.1 pg (28.0-33.3); Mean Corpuscular Volume 93.3 fL (83.0-100.0); Mean Platelet Volume 11.1 fL (9.4-12.4); Monocytes # 0.7 K/mcL (0.0-1.3); Neutrophils # 4.2 K/mcL (1.6-8.9); Platelet Count 144 K/mcL (140-400); Red Blood Count 4.63 M/mcL (4.19-5.50); Red Cell Distribution Width 13.2 % (11.5-14.5); Segmented Neutrophils % 53.5 %
[2017-08-18 06:23] LABS: Calcium 9.7 mg/dL (8.6-10.8); Magnesium 1.7 mg/dL (1.6-2.6); Phosphorous 3.1 mg/dL (2.3-4.7); Potassium 4.2 mEq/L (3.5-4.5)
[2017-08-18] MEDS ORDERED: APIXABAN 5 MG TABLET PO SCH (09:00)
[2017-08-18] MEDS: Budesonide/Formoterol 160/4.5 MDI IH SCH (09:53)
[2017-08-18] MEDS: Divalproex (12 HR) 500 MG TABLET PO SCH (10:40)
[2017-08-18] MEDS: Metoprolol XL (24 HR) Succ 25 MG TAB.ER.24H PO SCH (10:41)
[2017-08-18] MEDS: Finasteride 5 MG TABLET PO SCH (10:41)
[2017-08-18] MEDS: Loratadine 10 MG TABLET PO SCH (10:45)
[2017-08-18] MEDS: risperiDONE 1 MG TABLET PO SCH (10:45)
[2017-08-18 11:06] VITALS: BP 111/81
--- NOTE | 2017-08-18 12:48 | Discharge Summary ---
Date of Encounter: 08/18/17 Time of Encounter: 11:20 - Discharge Diagnosis (1) Deep vein thrombosis of lower extremity Priority: Primary Status: Acute Qualifiers: Affected thrombotic vein of extremity: other lower extremity vein Chronicity: acute Laterality: right Qualified Code(s): I82.491 - Acute embolism and thrombosis of other specified deep vein of right lower extremity (2) Lung nodule, solitary Priority: Secondary Status: Chronic (3) HLD (hyperlipidemia) Priority: Secondary Status: Chronic Qualifiers: Hyperlipidemia type: unspecified Qualified Code(s): E78.5 - Hyperlipidemia , unspecified (4) CKD (chronic kidney disease) Priority: Secondary Status: Chronic Qualifiers: Chronic kidney disease stage: stage 3 (moderate) Qualified Code(s): N18.3 - Chronic kidney disease, stage 3 (moderate) (5) Essential hypertension Priority: Secondary Status: Chronic (6) COPD (chronic obstructive pulmonary disease) Priority: Secondary Status: Chronic Qualifiers: COPD type: unspecified COPD Qualified Code(s): J44.9 - Chronic obstructive pulmonary disease, unspecified (7) Bipolar disorder Priority: Secondary Status: Chronic Qualifiers: Active/Remission status: currently active Current bipolar episode type: mixed Psychotic features: without psychotic features Qualified Code(s): F31.63 - Bipolar disorder, current episode mixed, severe, without psychotic features - Discharge Medications Prescriptions: Apixaban [Eliquis] 5 mg PO BID #60 tablet Home Medications: RX: Benztropine Mesylate 0.5 mg PO BID 12/06/16 [History] RX: Budesonide/Formoterol 160/4.5 [Symbicort 160/4.5] 2 puff IH BIDR 12/06/16 [ History] RX: Citalopram Hydrobromide [Citalopram HBr] 20 mg PO DAILY 12/06/16 [History] RX: Divalproex Sodium [Depakote] 500 mg PO TID 12/06/16 [History] RX: Finasteride [Proscar] 5 mg PO DAILY 12/06/16 [History] RX: Haloperidol 10 mg PO BID 12/06/16 [History] RX: Loratadine [Allergy Relief] 10 mg PO DAILY 12/06/16 [History] RX: Metoprolol Succinate 25 mg PO DAILY 12/06/16 [History] RX: Montelukast [Singulair] 10 mg PO QPM 12/06/16 [History] RX: Oxybutynin Chloride [Ditropan Xl] 5 mg PO BID 12/06/16 [History] RX: Oxygen 1 each .ROUTE AD 12/06/16 [History] RX: Pravastatin Sodium [Pravachol] 80 mg PO DAILY 12/06/16 [History] RX: Prazosin HCl [Minipress] 1 mg PO HS 12/06/16 [History] RX: risperiDONE [Risperdal] 6 mg PO HS 12/06/16 [History] RX: risperiDONE [Risperidone] 1 mg PO QAM 12/06/16 [History] RX: Acetaminophen [Tylenol] 650 mg PO Q4-6H PRN 04/10/17 [History] RX: Loperamide [Imodium] 2 mg PO 8XD PRN 04/10/17 [History] RX: Magnesium Hydroxide [Milk of Magnesia] 400 mg PO QID PRN 04/10/17 [History] RX: Budesonide/Formoterol 160/4.5 [Symbicort 160/4.5] 1 puff IH BIDR 08/16/17 [ History] RX: Lisinopril 2.5 mg PO DAILY 08/16/17 [History] Apixaban [Eliquis] 5 mg PO BID #60 tablet 08/18/17 [Rx] Allergies/Adverse Reactions: 3 Allergy/AdvReac Type Severity Reaction Status Date / Time No Known Allergies Allergy Verified 08/16/17 13:50 Procedures/tests Complete & Pending: Procedures Performed prior 72 hours Category Date Time Status ECG 12 lead ECG [ECG] Routine Y 08/17/17 02:11 Completed Date of admission: 08/16/17 20:52 Primary care physician: Jeanne Shields CNP Consults: 08/16/17 20:55 Consult for Pharmacy Education [CONS] Routine Reason for Consult: coumadin dosing for acute DVT Call Completed: No 08/17/17 08:17 Consult to Oncology Hematology [CONS] Routine Consulting Provider: Graham Mckeon Jr Reason for Consult: right lower extremity DVT, failed therapy on xarelto Call Completed: Yes Discharging clinician: Maxine Klein Anticipated date of discharge: 08/18/17 - Patient Status Disposition: Home, Self-Care Condition: Good Functional capacity at discharge: independent ambulation Overall status at discharge: patient is back to baseline - Discharge Instructions Follow Up With: Jeanne Shields CNP [Primary Care Provider] - 08/25/17 3:00 pm Additional Instructions: Please follow up with your primary care physician and oncologist within one week after your discharge from the hospital Your home dose of Xarelto has been discontinued and you are started on Eliquis 5mg twice a day. Resume all other medications as prescribed by your primary care physician. - Diet and Activity Activity: increase activity as tolerated Diet: low fat, low cholesterol, low salt diet Hospital course: Mr. Castaneda is a 71 year old male with PMH of COPD, HLD, HTN, bipolar disorder, CKD, hx of DVT, RML nodule, and light chain disease who was admitted for right lower extremity pain and was found to have acute RLE DVT despite being on Xarelto. He was started on heparin gtt and hematology was consulted. Pt's compliance is questionable as per the oncologist's evaluation. Pt lives in an assisted living facility and his care his managed by his sisters. Pt is started on Eliquis and will be closely monitored by oncology after discharge. Pt is in a stable condition for discharge today. - Time Spent with Patient Total time spent providing and/or coordinating discharge services: Less than 30 minutes - Constitutional Vitals: Temp Pulse Resp BP Pulse Ox 97.6 F 91 16 111/81 98 08/18/17 11:05 08/18/17 11:05 08/18/17 11:05 08/18/17 11:05 08/18/17 11:05 General appearance: Present: cooperative, A&O X 3, pleasant, no acute distress, answers questions appropriately - Head Head exam: Present: atraumatic, normocephalic - Eye Eye exam: Present: conjuntiva pink, sclera anicteric - Respiratory Respiratory exam: Present: CTAB. Absent: respiratory distress, wheezes, tachypnea - Cardiovascular Cardiovascular exam: Present: RRR, +S1, +S2. Absent: diastolic murmur, gallop, rubs, systolic murmur - GI/Abdominal GI/Abdominal exam: Present: normal bowel sounds, soft, no peritoneal signs. Absent: distended, tenderness - Extremities Exam Extremities exam: Present: warm, radial pulses palpable and symmetrical. Absent : calf tenderness - Neurological Exam Neurological exam: Present: alert, oriented X3 - Psychiatric Psychiatric exam: Present: normal affect, normal mood
== END 2017-08-18 16:15 | disposition home or self-care (01) | DRG 300 ==
LOC: EMEROO 13:27 → 2NENU 13:27
PROVIDERS: ADMIT Hospitalist; ATTEND Internal Medicine